=== PATIENT | male | born 1950 | race Caucasian/White ===

== ENCOUNTER → 2017-07-31 11:38 | Outpatient (CLI) | payer MEDICARE, OTHER, SELFPAY ==
[2017-07-31 12:38] LABS: Absolute Lymphocyte Count 0.92 X10^3/ul (0.83-4.51); Absolute Neutrophil Count 3.1 X10^3/uL (2.0-7.7); Basophil# 0.06 X10^3/uL; Basophil% 1.2 % (0-1); Eosinophil# 0.27 X10^3/uL; Eosinophils% 5.5 % (0-5); Hematocrit 39.6 % (40-54); Hemoglobin 12.5 g/dl (13.0-16.5); Lymphocyte # 0.92 X10^3/ul (4.0); Lymphocyte % 18.7 % (19-41); Mean Corp Hgb Conc 31.6 g/gl (32-36); Mean Corpuscular Hgb 26.8 pg (27.0-32.0); Mean Corpuscular Volume 84.8 fL (80-94); Mean Platelet Vol. 9.7 fl (6.2-12.0); Monocyte% 12.2 % (0-10); Neutrophil # 3.06 X10^3/uL (2.7-7.7); Neutrophil % 62.4 % (47-70); Platelet Count 298 K/mm3 (150-450); RBC Distribution Width CV 15.3 % (11.6-14.6); RBC Distribution Width SD 47.4 fl (35.1-43.9); Red Blood Count 4.67 M/mm3 (4.6-6.2); White Blood Count 4.9 K/mm3 (4.4-11.0)
[2017-07-31 12:42] LABS: POSITIVE COUNT NO; POSITIVE DIFFERENTIAL NO; POSITIVE MORPHOLOGY NO
[2017-07-31 12:56] LABS: AST(SGOT) 34 U/L (15-37); Alanine Aminotransfer ALT/SGPT 39 U/L (16-61); Alkaline Phosphatase 84 U/L (45-117); Anion Gap 7 (5-15); BUN 12 mg/dL (7-18); BUN/Creat Ratio 15.8 RATIO (10-20); Calcium,Total 9.4 mg/dL (8.5-10.1); Chloride 101 mmol/L (98-107); Creatinine, Serum 0.76 mg/dL (0.70-1.30); EST Glomerular Filtration Rate 108 mL/min (>60); Est Glom Filt Rate - Afr Amer 131 mL/min (>60); Globulin 4.1 g/dL (2.2-4.2); Glucose 99 mg/dL (74-106); PSA,Total - Annual Screen 0.71 ng/mL (0.00-4.00); Potassium 4.4 mmol/L (3.5-5.1); Protein, Total 8.1 g/dL (6.4-8.2); Sodium Level 137 mmol/L (136-145); Thyroid Stim Hormone (TSH) 0.55 uIU/mL (0.358-3.74)
[2017-08-01 10:10] LABS: Hep C Antibodies <0.1 s/co ratio (0.0-0.9)
== END ==
PROVIDERS: Family Provider Family Medicine Geriatric Medicine; PCP Family Medicine Geriatric Medicine; Visit Provider Family Medicine Geriatric Medicine
DX: I10 Essential (primary) hypertension (principal); F52.8 Other sexual dysfunction not due to a substance or known physiological condition; Z12.5 Encounter for screening for malignant neoplasm of prostate; Z13.89 Encounter for screening for other disorder
CPT/HCPCS: 36415; 80053; 84153; 84403; 84443; 85025; 86803; G0103

== ENCOUNTER → 2018-01-29 13:20 | Outpatient (CLI) | payer MEDICARE, OTHER, SELFPAY ==
[2018-01-29 17:29] LABS: Absolute Lymphocyte Count 0.74 X10^3/ul (0.83-4.51); Absolute Neutrophil Count 2.9 X10^3/uL (2.0-7.7); Basophil# 0.05 X10^3/uL; Basophil% 1.1 % (0-1); Eosinophil# 0.28 X10^3/uL; Hemoglobin 12.7 g/dl (13.0-16.5); Lymphocyte # 0.74 X10^3/ul (4.0); Mean Corp Hgb Conc 32.6 g/gl (32-36); Mean Platelet Vol. 10.4 fl (6.2-12.0); Monocyte# 0.68 X10^3/uL; Monocyte% 14.7 % (0-10); Neutrophil # 2.87 X10^3/uL (2.7-7.7); Platelet Count 255 K/mm3 (150-450); RBC Distribution Width CV 16.8 % (11.6-14.6); RBC Distribution Width SD 54.2 fl (35.1-43.9); Red Blood Count 4.38 M/mm3 (4.6-6.2); White Blood Count 4.6 K/mm3 (4.4-11.0)
[2018-01-29 17:35] LABS: ALB/GLOB Ratio 0.9 RATIO (0.9-2.4); AST(SGOT) 38 U/L (15-37); Alanine Aminotransfer ALT/SGPT 44 U/L (16-61); Albumin, Serum 3.7 g/dL (3.2-5.0); Alkaline Phosphatase 68 U/L (45-117); Anion Gap 11 (5-15); BUN 12 mg/dL (7-18); BUN/Creat Ratio 13.9 RATIO (10-20); Calcium,Total 8.8 mg/dL (8.5-10.1); Chloride 102 mmol/L (98-107); Creatinine, Serum 0.86 mg/dL (0.70-1.30); EST Glomerular Filtration Rate 93 mL/min (>60); Est Glom Filt Rate - Afr Amer 113 mL/min (>60); Globulin 3.9 g/dL (2.2-4.2); Glucose 89 mg/dL (74-106); Potassium 3.9 mmol/L (3.5-5.1); Protein, Total 7.6 g/dL (6.4-8.2); Sodium Level 140 mmol/L (136-145); Thyroid Stim Hormone (TSH) 0.56 uIU/mL (0.358-3.74)
[2018-01-29 17:43] LABS: Vitamin D,25 Hydroxy 27.5 ng/mL (29.95-100.01)
[2018-01-29 17:46] LABS: POSITIVE COUNT NO; POSITIVE DIFFERENTIAL NO; POSITIVE MORPHOLOGY NO
== END ==
PROVIDERS: Family Provider Family Medicine Geriatric Medicine; PCP Family Medicine Geriatric Medicine; Visit Provider Family Medicine Geriatric Medicine
DX: I10 Essential (primary) hypertension (principal); E55.9 Vitamin D deficiency, unspecified; F52.8 Other sexual dysfunction not due to a substance or known physiological condition
CPT/HCPCS: 36415; 80053; 82306; 84403; 84443; 85025

== ENCOUNTER → 2018-04-03 12:57 | Outpatient (CLI) | payer MEDICARE, OTHER, SELFPAY ==
--- NOTE | 2018-04-03 13:01 | ECHOD_ITS ---
Reason For Study: PHTN Procedure This was a 2D Doppler, Color Flow transthoracic echocardiogram. The exam was of adequate technical quality. Exam performed in department. Left Ventricle Normal LV size. Left ventricular systolic function is normal. The estimated ejection fraction is 70 %. No regional wall motion abnormalities noted. Right Ventricle Normal RV size. Normal systolic function. Atria The left atrium is mildly enlarged. The right atrium is mildly enlarged. No doppler evidence for ASD. Mitral Valve There is no mitral annular calcification. Normal mitral valve. Trivial mitral valve insufficiency. Tricuspid Valve Normal tricuspid valve. Trivial tricuspid valve insufficiency. Right ventricular systolic pressure estimated to be 39 mmHg. Aortic Valve Trisinus/trileaflet aortic valve. Mild focal aortic valve thickening. Pulmonic Valve The pulmonic valve is not well visualized. Great Vessels The aortic root is not well visualized. Pericardium/Pleural No pericardial effusion. MMode/2D Measurements & Calculations LVIDd: 4.5 cm IVSd: 0.99 cm LA dimension: 4.1 cm LVIDs: 2.6 cm LVPWd: 1.1 cm FS: 43.3 % LAV(MOD-bp): 65.2 ml LA A4 area: 20.9 cm2 RA A4 area: 23.9 cm2 LAV(MOD-bp) Indexed: 29.7 ml/m2 LAV(MOD-sp2): 67.4 ml LAV(MOD-sp4): 62.3 ml Time Measurements MV dec time: 0.33 sec Doppler Measurements & Calculations MV E max carlos: 105.2 cm/sec Lat Peak E' Carlos: 11.1 cm/sec Med Peak E' Carlos: 9.8 cm/sec MV A max carlos: 78.9 cm/sec E/E' lat: 9.5 E/E' med: 10.7 MV E/A: 1.3 MV V2 max: 114.6 cm/sec MV P1/2t max carlos: 108.8 cm/sec Ao V2 max: 190.7 cm/sec MV max P.3 mmHg MV P1/2t: 119.1 msec Ao max P.5 mmHg MV V2 mean: 63.0 cm/sec MV dec slope: 267.6 cm/sec2 Ao V2 mean: 118.6 cm/sec MV mean P.9 mmHg MVA(P1/2t): 1.8 cm2 Ao mean P.7 mmHg MV V2 VTI: 41.8 cm Ao V2 VTI: 36.7 cm LV V1 max: 128.3 cm/sec PA V2 max: 150.2 cm/sec TR max carlos: 298.1 cm/sec LV V1 max P.6 mmHg TR max P.5 mmHg LV V1 mean P.2 mmHg LV V1 mean: 80.8 cm/sec LV V1 VTI: 26.9 cm Interpretation Summary Left ventricular systolic function is normal. The estimated ejection fraction is 70 %. The left atrium is mildly enlarged. The right atrium is mildly enlarged. Trivial mitral valve insufficiency. Trivial tricuspid valve insufficiency. Mild focal aortic valve thickening. Right ventricular systolic pressure estimated to be 39 mmHg. Transmitral diastolic flow velocities suggest diastolic dysfunction (pseudonormal pattern). Ordering Physician: Jigar Cast Referring Physician: Jigar Cast Performed By: Stuart Krause RCS
--- OUTSIDE RECORDS SUMMARY | 2018-06-05 17:13 | XMS RPT_ITS ---
:1950 Author Organization [facility] Care Team Providers Name Role Phone Jigar Cast Attending Unavailable Jigar Cast Referring Unavailable Raman, Mohinder Chi Primary Care Unavailable Raman, Mohinder Chi Attending Unavailable Raman, Mohinder Chi Primary Care Unavailable Raman, Mohinder Chi Attending Unavailable Raman, Mohinder Chi Primary Care Unavailable PROBLEMS PROBLEMS No Problem Records FoundPROCEDURES PROCEDURES No Procedure Records FoundRESULTS RESULTS ECHOCARDIOGRAM COMPLETE Observed: 04/03/2018 Status: F Source: [place] 8:08 PM [facility] REPOSITORY [facility] Cardiovascular Services [address] [place] [address] Echo Complete 04/03/18 1302 MR#: [id number] Acct: [id number] Name: AVELINA TREJO Rep #: [id number] : 1950 67 From: Cutr Felix MD Attending Dr: Jigar Cast MD Status: REG CLI Ordering Dr: Jigar Cast MD Date: 04/03/18 Location: [facility] Sex: M C Admitted: Reason For Study: PHTN Procedure This was a 2D Doppler, Color Flow transthoracic echocardiogram. The exam was of adequate technical quality. Exam performed in department. Left Ventricle Normal LV size. Left ventricular systolic function is normal. The estimated ejection fraction is 70 %. No regional wall motion abnormalities noted. Right Ventricle Normal RV size. Normal systolic function. Atria The left atrium is mildly enlarged. The right atrium is mildly enlarged. No doppler evidence for ASD. Mitral Valve There is no mitral annular calcification. Normal mitral valve. Trivial mitral valve insufficiency. Tricuspid Valve Normal tricuspid valve. Trivial tricuspid valve insufficiency. Right ventricular systolic pressure estimated to be 39 mmHg. Aortic Valve Trisinus/trileaflet aortic valve. Mild focal aortic valve thickening. Pulmonic Valve The pulmonic valve is not well visualized. Great Vessels The aortic root is not well visualized. Pericardium/Pleural No pericardial effusion. MMode/2D Measurements AND Calculations LVIDd: 4.5 cm IVSd: 0.99 cm LA dimension: 4.1 cm LVIDs: 2.6 cm LVPWd: 1.1 cm FS: 43.3 % LAV(MOD-bp): 65.2 ml LA A4 area: 20.9 cm2 RA A4 area: 23.9 cm2 LAV(MOD-bp) Indexed: 29.7 ml/m2 LAV(MOD-sp2): 67.4 ml LAV(MOD-sp4): 62.3 ml Time Measurements MV dec time: 0.33 sec Doppler Measurements AND Calculations MV E max carlos: 105.2 cm/sec Lat Peak E' Carlos: 11.1 cm/sec Med Peak E' Carlos: 9.8 cm/sec MV A max carlos: 78.9 cm/sec E/E' lat: 9.5 E/E' med: 10.7 MV E/A: 1.3 MV V2 max: 114.6 cm/sec MV P1/2t max carlos: 108.8 cm/sec Ao V2 max: 190.7 cm/sec MV max P.3 mmHg MV P1/2t: 119.1 msec Ao max P.5 mmHg MV V2 mean: 63.0 cm/sec MV dec slope: 267.6 cm/sec2 Ao V2 mean: 118.6 cm/sec MV mean P.9 mmHg MVA(P1/2t): 1.8 cm2 Ao mean P.7 mmHg MV V2 VTI: 41.8 cm Ao V2 VTI: 36.7 cm LV V1 max: 128.3 cm/sec PA V2 max: 150.2 cm/sec TR max carlos: 298.1 cm/sec LV V1 max P.6 mmHg TR max P.5 mmHg LV V1 mean P.2 mmHg LV V1 mean: 80.8 cm/sec LV V1 VTI: 26.9 cm Interpretation Summary Left ventricular systolic function is normal. The estimated ejection fraction is 70 %. The left atrium is mildly enlarged. The right atrium is mildly enlarged. Trivial mitral valve insufficiency. Trivial tricuspid valve insufficiency. Mild focal aortic valve thickening. Right ventricular systolic pressure estimated to be 39 mmHg. Transmitral diastolic flow velocities suggest diastolic dysfunction (pseudonormal pattern). Ordering Physician: Jigar Cast Referring Physician: Jigar Cast Performed By: Stuart Krause RCS 04/03/182007 Date Curt Felix MD CC: Jigar Cast MD; Mohinder Camargo MD Date Dictated: 04/03/182 Date Transcribed: 04/03/182007 Cartography Teacher: Signed COMPREHENSIVE METABOLIC Collected: 01/29/2018 Status: F Source: [place] 1:21 PM [facility] REPOSITORY TYPE CODE TESTS RESULT OUT OF RANGE REFERENCE UNITS LAB L501.0100 74-106 mg/dL Normal GLU 89 Result Comment: Please note revised GLUCOSE reference range effective 2017. LAB L501.1000 7-18 mg/dL Normal BUN 12 LAB L501.1100 0.70-1.30 mg/dL Normal CREAT,SERUM 0.86 Result Comment: The validity of the calculated GFR AND GFRAA in patients over 70 years has not been determined. Clinical correlation is essential. LAB L501.1110 >60 mL/min Normal EST GFR 93 Result Comment: Non- GFR Calc LAB L501.1115 >60 mL/min Normal EST GFR - AA 113 Result Comment: GFR Calc LAB L501.1300 10-20 RATIO Normal BUN/CRE 13.9 LAB L501.1500 6.4-8.2 g/dL T Normal PROT 7.6 LAB L501.1800 3.2-5.0 g/dL Normal ALB 3.7 LAB L501.1950 2.2-4.2 g/dL Normal GLOB 3.9 LAB L501.2000 0.9-2.4 RATIO Normal A/G 0.9 LAB L501.2200 8.5-10.1 mg/dL CA Normal 8.8 LAB L501.4100 15-37 U/L High AST 38 LAB L501.4305 45-117 U/L Normal ALK P 68 LAB L501.4405 16-61 U/L Normal ALT 44 LAB L501.4600 0.20-1.00 mg/dL T Normal BILI 0.40 LAB L501.5300 136-145 mmol/L NA Normal 140 LAB L501.5600 3.5-5.1 mmol/L K Normal 3.9 LAB L501.5900 98-107 mmol/L CL Normal 102 LAB L501.6100 21.0-32.0 mmol/L Normal CO2 27.0 LAB L501.6200 5-15 Normal GAP 11 Performed By: #### L500.4050, L501.9520 #### [facility] [address] [place], [address] THYROID STIM HORMONE Collected: 01/29/2018 Status: F Source: [place] (TSH) 1:21 PM [facility] REPOSITORY TYPE CODE TESTS RESULT OUT OF RANGE REFERENCE UNITS LAB L501.9520 0.358-3.74 uIU/mL Normal TSH 0.56 Performed By: #### L500.4050, L501.9520 #### [facility] [address] [place], [address] VITAMIN D,25 HYDROXY Collected: 01/29/2018 Status: F Source: [place] 1:21 PM [facility] REPOSITORY TYPE CODE TESTS RESULT OUT OF REFERENCE UNITS RANGE LAB L506.1000 29.95-100.01 ng/mL Low Vitamin D 27.5 25-OH Result Comment: Vitamin D 25(OH) Status Range Deficiency <20 ng/mL (50nmol/L) Insuffciency 20 - 30 ng/mL (50 - 75 nmol/L) Sufficiency 30 - 100 ng/mL (75 - 250 nmol/L) Toxicity >100 ng/mL (>250 nmol/L) Performed By: #### L506.1000, L509.3000 #### [facility] [address] [place], [place], [address] TESTOSTERONE, SERUM TOTAL Collected: 01/29/2018 Status: F Source: [place] 1:21 PM [facility] REPOSITORY TYPE CODE TESTS RESULT OUT OF REFERENCE UNITS RANGE LAB L509.3000 ng/dL Testosterone Normal 319.96 Result Comment: NORMAL REFERENCE RANGES MALE AGE <50 123.06 - 813.86 ng/dL MALE AGE >50 89.98 - 780.10 ng/dL FEMALE PREMENOPAUSE AGE 21 - 60 9.01 - 47.94 ng/dL FEMALE POSTMENOPAUSE AGE 45 - 89 <7.00 - 45.62 ng/dL REFERENCE RANGE AND METHODOLOGY CHANGED 03/01/2017 Performed By: #### L506.1000, L509.3000 #### [facility] [address] [place], [place], [address] CBC W/DIFF, AUTOMATED Collected: 01/29/2018 Status: F Source: [place] 1:21 PM [facility] REPOSITORY TYPE CODE TESTS RESULT OUT OF RANGE REFERENCE UNITS LAB L100.1000 4.4-11.0 K/mm3 Normal WBC 4.6 LAB L100.1200 4.6-6.2 M/mm3 Low RBC 4.38 LAB L100.1300 13.0-16.5 g/dl Low HGB 12.7 LAB L100.1400 40-54 % Low HCT 39.0 LAB L100.1500 80-94 fL Normal MCV 89.0 LAB L100.1600 27.0-32.0 pg Normal MCH 29.0 LAB L100.1700 32-36 g/gl Normal MCHC 32.6 LAB L100.1810 11.6-14.6 % High RDW CV 16.8 LAB L100.1820 35.1-43.9 fl High RDW SD 54.2 LAB L100.1900 150-450 K/mm3 Normal PLT 255 LAB L100.2000 6.2-12.0 fl Normal MPV 10.4 LAB L100.2100 47-70 % Normal NEUT% 62.0 LAB L100.2200 19-41 % Low LY% 16.0 LAB L100.2300 0-10 % High MONO% 14.7 LAB L100.2400 0-5 % High EO% 6.0 LAB L100.2500 0-1 % High BASO% 1.1 LAB L100.2550 0.0-0.9 % Normal IM GRAN % 0.200 Result Comment: IG% - Immature Granulocytes (promyelocytes, myelocytes and metamyelocytes) > 1% indicates that a LEFT SHIFT is Present. LAB L100.2620 2.0-7.7 X10 3/uL Normal Absolute Neut 2.9 LAB L100.2720 0.83-4.51 X10 3/ul Low Absolute Lymph 0.74 Performed By: #### L100.0100 #### [facility] [address] [place], [address] CBC W/DIFF, AUTOMATED Collected: 07/31/2017 Status: F Source: [place] 11:38 AM [facility] REPOSITORY TYPE CODE TESTS RESULT OUT OF RANGE REFERENCE UNITS LAB L100.1000 4.4-11.0 K/mm3 Normal WBC 4.9 LAB L100.1200 4.6-6.2 M/mm3 Normal RBC 4.67 LAB L100.1300 13.0-16.5 g/dl Low HGB 12.5 LAB L100.1400 40-54 % Low HCT 39.6 LAB L100.1500 80-94 fL Normal MCV 84.8 LAB L100.1600 27.0-32.0 pg Low MCH 26.8 LAB L100.1700 32-36 g/gl Low MCHC 31.6 LAB L100.1810 11.6-14.6 % High RDW CV 15.3 LAB L100.1820 35.1-43.9 fl High RDW SD 47.4 LAB L100.1900 150-450 K/mm3 Normal PLT 298 LAB L100.2000 6.2-12.0 fl Normal MPV 9.7 LAB L100.2100 47-70 % Normal NEUT% 62.4 LAB L100.2200 19-41 % Low LY% 18.7 LAB L100.2300 0-10 % High MONO% 12.2 LAB L100.2400 0-5 % High EO% 5.5 LAB L100.2500 0-1 % High BASO% 1.2 LAB L100.2550 0.0-0.9 % Normal IM GRAN % 0.000 Result Comment: IG% - Immature Granulocytes (promyelocytes, myelocytes and metamyelocytes) > 1% indicates that a LEFT SHIFT is Present. LAB L100.2620 2.0-7.7 X10 3/uL Normal Absolute Neut 3.1 LAB L100.2720 0.83-4.51 X10 3/ul Normal Absolute Lymph 0.92 Performed By: #### L100.0100 #### [facility] [place], [address] COMPREHENSIVE METABOLIC Collected: 07/31/2017 Status: F Source: [place] 11:38 AM [facility] REPOSITORY TYPE CODE TESTS RESULT OUT OF RANGE REFERENCE UNITS LAB L501.0100 74-106 mg/dL Normal GLU 99 Result Comment: Please note revised GLUCOSE reference range effective 2017. LAB L501.1000 7-18 mg/dL Normal BUN 12 LAB L501.1100 0.70-1.30 mg/dL Normal CREAT,SERUM 0.76 Result Comment: The validity of the calculated GFR AND GFRAA in patients over 70 years has not been determined. Clinical correlation is essential. LAB L501.1110 >60 mL/min Normal EST GFR 108 Result Comment: Non- GFR Calc LAB L501.1115 >60 mL/min Normal EST GFR - AA 131 Result Comment: GFR Calc LAB L501.1300 10-20 RATIO Normal BUN/CRE 15.8 LAB L501.1500 6.4-8.2 g/dL T Normal PROT 8.1 LAB L501.1800 3.2-5.0 g/dL Normal ALB 4.0 LAB L501.1950 2.2-4.2 g/dL Normal GLOB 4.1 LAB L501.2000 0.9-2.4 RATIO Normal A/G 1.0 LAB L501.2200 8.5-10.1 mg/dL CA Normal 9.4 LAB L501.4100 15-37 U/L Normal AST 34 LAB L501.4305 45-117 U/L Normal ALK P 84 LAB L501.4405 16-61 U/L Normal ALT 39 LAB L501.4600 0.20-1.00 mg/dL T Normal BILI 0.50 LAB L501.5300 136-145 mmol/L NA Normal 137 LAB L501.5600 3.5-5.1 mmol/L K Normal 4.4 LAB L501.5900 98-107 mmol/L CL Normal 101 LAB L501.6100 21.0-32.0 mmol/L Normal CO2 29.0 LAB L501.6200 5-15 Normal GAP 7 Performed By: #### L500.4050, L501.9520, L501.9910 #### [facility] [address] [place], [address] THYROID STIM HORMONE Collected: 07/31/2017 Status: F Source: [place] (TSH) 11:38 AM [facility] REPOSITORY TYPE CODE TESTS RESULT OUT OF RANGE REFERENCE UNITS LAB L501.9520 0.358-3.74 uIU/mL Normal TSH 0.55 Performed By: #### L500.4050, L501.9520, L501.9910 #### [facility] [address] [place], [address] PSA,TOTAL - ANNUAL Collected: 07/31/2017 Status: F Source: [place] 11:38 AM [facility] REPOSITORY TYPE CODE TESTS RESULT OUT OF RANGE REFERENCE UNITS LAB L501.9910 0.00-4.00 ng/mL Normal PSA,TOT 0.71 SCREEN Result Comment: This test was performed using the TPSA assay method for the [employer] chemistry system. Values obtained with different assay methods cannot be used interchangably. When changing PSA assays in the course of monitoring a patient, additional sequential testing should be carried out to confirm baseline values. Performed By: #### L500.4050, L501.9520, L501.9910 #### [facility] [address] [place], [place], [address] TESTOSTERONE, SERUM TOTAL Collected: 07/31/2017 Status: F Source: [place] 11:38 AM [facility] REPOSITORY TYPE CODE TESTS RESULT OUT OF REFERENCE UNITS RANGE LAB L509.3000 ng/dL Testosterone Normal 387.68 Result Comment: NORMAL REFERENCE RANGES MALE AGE <50 123.06 - 813.86 ng/dL MALE AGE >50 89.98 - 780.10 ng/dL FEMALE PREMENOPAUSE AGE 21 - 60 9.01 - 47.94 ng/dL FEMALE POSTMENOPAUSE AGE 45 - 89 <7.00 - 45.62 ng/dL REFERENCE RANGE AND METHODOLOGY CHANGED 03/01/2017 Performed By: #### L509.3000 #### [facility] [address] [place], [address] HEPATITIS C ANTIBODIES Collected: 07/31/2017 Status: F Source: [place] 11:38 AM [facility] REPOSITORY TYPE CODE TESTS RESULT OUT OF RANGE REFERENCE UNITS LAB L3100.0650 0.0-0.9 s/co ratio Normal HEP C AB <0.1 Result Comment: Negative: < 0.8 Indeterminate: 0.8 - 0.9 Positive: > 0.9 The CDC recommends that a positive HCV antibody result be followed up with a HCV Nucleic Acid Amplification test (642778). Performed at: [facility] [id number] Line Cleaner: Gopi Renner PhD, Phone: [phone] Performed By: #### L3100.0625 #### [facility] (refer to report for specific site) refer to report for address and phone number ALLERGIES ALLERGIES DATE TYPE / CODE NAME / CODE REACTION SEVERITY SOURCE 09/16/2014 Drug lisinopril/F0 Angioedema Unknown [place] Allergy/[id number](S [id number](RXNO [facility] NOMED CT) RM) Hospital Repository 09/14/2014 Drug Penicillins/F Unknown Unknown [place] Allergy/080547326(S [id number](RXN [facility] NOMED CT) ORM) Hospital Repository 09/14/2014 Miscellaneous BLUE CHEESE Swelling Unknown [place] Allergy/[id number](S DRESSING [facility]) Hospital Repository ENCOUNTERS ENCOUNTERS ADMIT/DISCHARGE ACCOUNT ADMITTING ENCOUNTER LOCATION SOURCE NUMBER CLASS 04/03/2018 [id number] Ambulatory [place] 2 [facility] ing:[facility] Repository 01/29/2018 [id number] Ambulatory [place] 2 [facility] ing:POLAB3 Repository 07/31/2017 [id number] Ambulatory [place] 3 [facility] ing:POLAB3 Repository PAYERS PAYERS ENCOUNTER GUARANTOR PAYER SUBSCRIBER SOURCE 04/03/2018 AVELINA Dickerson Primary AVELINA Berkowitz [id number] Insurance:MEDICARE EMLERDOB: [facility] A [facility] [id number] Repository [id number]: [phone] [id number] [phone] () Date:2017-09-27 04/03/2018 Secondary AVELINA Berkowitz Insurance:[facility] EMLERDOB: [facility] [id number] [facility] Number: Repository [id number] Date:[id number] [place] [place] [address]UR: 04/03/2018 Tertiary NOT GIVENUNK [place] Insurance:SELF PAY [facility] Number: Effective Repository Date:2017-09-27 01/29/2018 Avelina Dickerson Primary Avelina Gainesoster [id number] Insurance:MEDICARE EmlerDOB: [facility] PART A [facility] [id number] Number: Repository [id number]: [phone] [id number] [phone] (HP) Date:2018-01-29 01/29/2018 Secondary Avelina Berkowitz Insurance:WPS EmlerDOB: [facility] [id number] Hospital Number: Repository [id number] Date:[id number], [place] [address]UR: 01/29/2018 Tertiary NOT GIVENUNK [place] Insurance:SELF PAY [facility] Number: Effective Repository Date:2018-01-29 07/31/2017 Avelina Dickerson Primary Avelina Gainesoster [id number] Insurance:MEDICARE EmlerDOB: [facility] PART A [facility] [id number] Number: Repository [id number]: [phone] [id number] [phone] (HP) Date:2017-07-31 07/31/2017 Secondary Avelina Berkowitz Insurance:WPS EmlerDOB: [facility] [id number] Hospital Number: Repository [id number] Date:[id number], [place] [address]FN: 07/31/2017 Tertiary NOT GIVENUNK [place] Insurance:SELF PAY [facility] Hospital Number: Effective Repository Date:2017-07-31
== END ==
PROVIDERS: Family Provider Family Medicine Geriatric Medicine; PCP Family Medicine Geriatric Medicine; Referring Provider Internal Medicine Pulmonary Disease; Visit Provider Internal Medicine Pulmonary Disease
DX: I27.0 Primary pulmonary hypertension (principal)
CPT/HCPCS: 93306

== ENCOUNTER → 2018-08-03 | Outpatient (CLI) | payer MEDICARE, OTHER, SELFPAY ==
[2018-08-03 12:43] LABS: Absolute Lymphocyte Count 0.86 X10^3/ul (0.83-4.51); Basophil# 0.08 X10^3/uL; Basophil% 1.4 % (0-1); Eosinophil# 0.26 X10^3/uL; Eosinophils% 4.4 % (0-5); Hematocrit 39.6 % (40-54); Hemoglobin 12.8 g/dl (13.0-16.5); Lymphocyte # 0.86 X10^3/ul (4.0); Lymphocyte % 14.7 % (19-41); Mean Corp Hgb Conc 32.3 g/gl (32-36); Mean Corpuscular Hgb 26.8 pg (27.0-32.0); Mean Platelet Vol. 9.5 fl (6.2-12.0); Monocyte# 0.65 X10^3/uL; Monocyte% 11.1 % (0-10); Neutrophil # 3.99 X10^3/uL (2.7-7.7); Neutrophil % 68.2 % (47-70); Platelet Count 287 K/mm3 (150-450); RBC Distribution Width SD 45.7 fl (35.1-43.9); Red Blood Count 4.77 M/mm3 (4.6-6.2); White Blood Count 5.9 K/mm3 (4.4-11.0)
[2018-08-03 12:48] LABS: POSITIVE COUNT NO; POSITIVE DIFFERENTIAL NO; POSITIVE MORPHOLOGY NO
[2018-08-03 13:33] LABS: AST(SGOT) 34 U/L (15-37); Alanine Aminotransfer ALT/SGPT 39 U/L (16-61); Alkaline Phosphatase 73 U/L (45-117); Anion Gap 7 (5-15); BUN 15 mg/dL (7-18); BUN/Creat Ratio 18.8 RATIO (10-20); Chloride 104 mmol/L (98-107); EST Glomerular Filtration Rate 102 mL/min (>60); Est Glom Filt Rate - Afr Amer 123 mL/min (>60); Glucose 92 mg/dL (74-106); Potassium 3.8 mmol/L (3.5-5.1); Sodium Level 137 mmol/L (136-145); Thyroid Stim Hormone (TSH) 0.64 uIU/mL (0.358-3.74)
== END | disposition home or self-care (01) ==
LOC: LAB 11:46
PROVIDERS: Family Provider Family Medicine Geriatric Medicine; PCP Family Medicine Geriatric Medicine; Referring Provider Family Medicine Geriatric Medicine; Visit Provider Family Medicine Geriatric Medicine
DX: I10 Essential (primary) hypertension (principal); F52.8 Other sexual dysfunction not due to a substance or known physiological condition; Z12.5 Encounter for screening for malignant neoplasm of prostate
CPT/HCPCS: 36415; 80053; 84153; 84403; 84443; 85025; G0103

== ENCOUNTER → 2019-02-01 10:29 | Outpatient (CLI) | payer MEDICARE, OTHER, SELFPAY ==
[2019-02-01 12:28] LABS: Absolute Lymphocyte Count 0.58 X10^3/uL (0.83-4.51); Absolute Neutrophil Count 3.1 X10^3/uL (2.0-7.7); Basophil# 0.06 X10^3/uL; Basophil% 1.3 % (0-1); Eosinophil# 0.16 X10^3/uL; Eosinophils% 3.6 % (0-5); Hematocrit 41.9 % (40-54); Hemoglobin 13.9 g/dL (13.0-16.5); Lymphocyte # 0.58 X10^3/ul (4.0); Lymphocyte % 12.9 % (19-41); Mean Corp Hgb Conc 33.2 g/dL (32-36); Mean Corpuscular Hgb 29.6 pg (27.0-32.0); Mean Corpuscular Volume 89.3 fL (80-94); Mean Platelet Vol. 9.8 fl (6.2-12.0); Monocyte# 0.61 X10^3/uL; Monocyte% 13.6 % (0-10); NRBC Flagged by Analyzer 0 % (0-5); Neutrophil # 3.07 X10^3/uL (2.7-7.7); Neutrophil % 68.2 % (47-70); POSITIVE DIFFERENTIAL YES; Platelet Count 271 K/mm3 (150-450); RBC Distribution Width CV 14.2 % (11.6-14.6); RBC Distribution Width SD 46.4 fl (35.1-43.9); Red Blood Count 4.69 M/mm3 (4.6-6.2); White Blood Count 4.5 K/mm3 (4.4-11.0)
[2019-02-01 12:33] LABS: Differential Indicated SCAN CRITERIA MET
[2019-02-01 12:51] LABS: Vitamin D,25 Hydroxy 36.2 ng/mL (29.95-100.01)
[2019-02-01 12:54] LABS: ALB/GLOB Ratio 0.9 RATIO (0.9-2.4); AST(SGOT) 32 U/L (15-37); Alanine Aminotransfer ALT/SGPT 36 U/L (16-61); Albumin, Serum 3.6 g/dL (3.2-5.0); Alkaline Phosphatase 69 U/L (45-117); Anion Gap 4 (5-15); BUN 11 mg/dL (7-18); BUN/Creat Ratio 14.3 RATIO (10-20); Calcium,Total 8.7 mg/dL (8.5-10.1); Chloride 102 mmol/L (98-107); Creatinine, Serum 0.77 mg/dL (0.70-1.30); EST Glomerular Filtration Rate 107 mL/min (>60); Est Glom Filt Rate - Afr Amer 129 mL/min (>60); Glucose 95 mg/dL (74-106); Potassium 3.6 mmol/L (3.5-5.1); Protein, Total 7.6 g/dL (6.4-8.2); Sodium Level 136 mmol/L (136-145)
[2019-02-01 13:23] LABS: Platelet Estimate ADEQUATE (ADEQ); Red Cell Morphology NORM C+C NORMAL (NORM C&C)
== END ==
PROVIDERS: Family Provider Family Medicine Geriatric Medicine; PCP Family Medicine Geriatric Medicine; Visit Provider Family Medicine Geriatric Medicine
DX: E55.9 Vitamin D deficiency, unspecified (principal); F52.8 Other sexual dysfunction not due to a substance or known physiological condition; I10 Essential (primary) hypertension; Z12.5 Encounter for screening for malignant neoplasm of prostate
CPT/HCPCS: 36415; 80053; 82306; 84403; 84443; 85025

== ENCOUNTER → 2019-04-08 13:59 | Outpatient (CLI) | payer MEDICARE, OTHER, SELFPAY ==
--- NOTE | 2019-04-08 14:04 | ECHOD_ITS ---
Reason For Study: PHTN Procedure This was a 2D Doppler, Color Flow transthoracic echocardiogram. Exam performed in department. Left Ventricle Normal LV size. Left ventricular systolic function is normal. The estimated ejection fraction is 65 %. No regional wall motion abnormalities noted. Right Ventricle Normal RV size. Normal systolic function. Atria Normal left atrium. Normal right atrium. Mitral Valve Normal mitral valve. Tricuspid Valve Normal tricuspid valve. Unable to estimate RV systolic pressure due to inadequate jet, pulmonary artery pressure probably normal. Aortic Valve Normal aortic valve. Trisinus/trileaflet aortic valve. Pulmonic Valve Normal pulmonic valve. Great Vessels Normal aortic root. The pulmonary artery is normal size. Normal inferior vena cava. Pericardium/Pleural No pericardial effusion. MMode/2D Measurements & Calculations LVIDd: 5.1 cm IVSd: 1.0 cm LVOT diam: 2.0 cm LVIDs: 3.0 cm LVPWd: 1.1 cm LVOT area: 3.0 cm2 RVDd: 4.2 cm FS: 41.1 % Ao root diam: 3.4 cm LAV(MOD-bp): 72.2 ml LA A4 area: 21.5 cm2 LAV(MOD-bp) Indexed: 33.4 ml/m2 LAV(MOD-sp2): 66.4 ml LAV(MOD-sp4): 69.1 ml LA dimension(2D): 4.1 cm RA A4 area: 15.9 cm2 Time Measurements MV dec time: 0.22 sec Doppler Measurements & Calculations MV E max carlos: 92.3 cm/sec Lat Peak E' Carlos: 11.2 cm/sec Med Peak E' Carlos: 9.1 cm/sec MV A max carlos: 80.9 cm/sec E/E' lat: 8.2 E/E' med: 10.1 MV E/A: 1.1 Ao V2 max: 195.5 cm/sec LV V1 max: 144.7 cm/sec SV(LVOT): 85.5 ml Ao max P.3 mmHg LV V1 max P.4 mmHg Ao V2 mean: 130.0 cm/sec LV V1 mean P.3 mmHg Ao mean P.5 mmHg LV V1 mean: 98.4 cm/sec Ao V2 VTI: 34.1 cm LV V1 VTI: 28.4 cm TAMAR(I,D): 2.5 cm2 TAMAR(V,D): 2.2 cm2 PA V2 max: 157.8 cm/sec Interpretation Summary Normal LV size. Left ventricular systolic function is normal. The estimated ejection fraction is 65 %. Unable to estimate RV systolic pressure due to inadequate jet, pulmonary artery pressure probably normal. Ordering Physician: Jigar Cast Referring Physician: Raman, Mohinder Chi Performed By: Loni Rivera, SHERRY, RVT
== END ==
PROVIDERS: Family Provider Family Medicine Geriatric Medicine; PCP Family Medicine Geriatric Medicine; Referring Provider Internal Medicine Pulmonary Disease; Visit Provider Internal Medicine Pulmonary Disease
DX: I27.20 Pulmonary hypertension, unspecified (principal)
CPT/HCPCS: 93306

== ENCOUNTER → 2019-05-14 | Outpatient (CLI) | payer MEDICARE, OTHER, SELFPAY ==
--- NOTE | 2019-05-14 14:36 | STRESSREP ---
Stress Test Report Date: 05-14-2019 Procedure: Exercise tolerance test Indications: Shortness of breath/dyspnea Consent: Per the patient Procedure: The patient exercised on a Timmy protocol for 6 minutes completing Stage II achieving a peak heart rate of 130 bpm (86 % predicted maximal heart rate) with a peak blood pressure 198/84 mmHg and a peak MET capacity of approximately 7 mET's. The baseline ECG demonstrated normal sinus rhythm. The peak exercise ECG demonstrated no obvious ECG changes. There was an occasional PAC/PVC during exercise and recovery; there was an isolated ventricular couplet during exercise and an isolated ventricular triplet during recovery. The functional capacity was considered average. The patient had no complaint of chest discomfort during exercise or recovery. The examination was discontinued secondary to Sallie. Impression: 1. Technically adequate (percent predicted maximal heart rate greater than 85%) exercise tolerance test 2. Peak exercise ECG with no obvious ECG changes 3. There was an occasional PAC/PVC during exercise and recovery; there was an isolated ventricular couplet during exercise and an isolated ventricular triplet during recovery This note was generated with [employer] software. It may contain incorrect words, spelling, and punctuation that were not noted in checking the note before signing.
== END | disposition home or self-care (01) ==
LOC: CVS 10:55
PROVIDERS: PCP Family Medicine Geriatric Medicine; Referring Provider Internal Medicine Pulmonary Disease; Visit Provider Internal Medicine Pulmonary Disease
DX: R06.00 Dyspnea, unspecified (principal)
CPT/HCPCS: 93017

== ENCOUNTER → 2019-08-09 | Outpatient (CLI) | payer MEDICARE, OTHER, SELFPAY | END | disposition home or self-care (01) | LOC: POLAB3 09:41 → LAB.FUTURE 12:01 | PROVIDERS: PCP Family Medicine Geriatric Medicine; Visit Provider Family Medicine Geriatric Medicine | DX: E55.9 Vitamin D deficiency, unspecified (principal); F52.8 Other sexual dysfunction not due to a substance or known physiological condition; I10 Essential (primary) hypertension; Z12.5 Encounter for screening for malignant neoplasm of prostate ==

== ENCOUNTER → 2020-02-11 10:38 | Outpatient (CLI) | payer MEDICARE, OTHER, SELFPAY ==
[2020-02-11 12:31] LABS: Absolute Lymphocyte Count 0.52 X10^3/uL (0.83-4.51); Absolute Neutrophil Count 3.8 X10^3/uL (2.0-7.7); Basophil# 0.05 X10^3/uL; Eosinophil# 0.14 X10^3/uL; Eosinophils% 2.7 % (0-5); Hemoglobin 14.7 g/dL (13.0-16.5); Lymphocyte # 0.52 X10^3/ul (4.0); Lymphocyte % 10.2 % (19-41); Mean Corp Hgb Conc 33.4 g/dL (32-36); Mean Corpuscular Hgb 31.8 pg (27.0-32.0); Mean Corpuscular Volume 95.2 fL (80-94); Mean Platelet Vol. 9.6 fl (6.2-12.0); Monocyte# 0.58 X10^3/uL; Monocyte% 11.4 % (0-10); NRBC Flagged by Analyzer 0 % (0-5); Neutrophil # 3.79 X10^3/uL (2.7-7.7); Neutrophil % 74.3 % (47-70); POSITIVE DIFFERENTIAL YES; Platelet Count 243 K/mm3 (150-450); RBC Distribution Width CV 13.6 % (11.6-14.6); RBC Distribution Width SD 48.3 fl (35.1-43.9); Red Blood Count 4.62 M/mm3 (4.6-6.2); White Blood Count 5.1 K/mm3 (4.4-11.0)
[2020-02-11 12:32] LABS: Differential Indicated SCAN CRITERIA MET
[2020-02-11 12:47] LABS: Vitamin D,25 Hydroxy 27.2 ng/mL
[2020-02-11 12:56] LABS: AST(SGOT) 31 U/L (15-37); Alanine Aminotransfer ALT/SGPT 35 U/L (16-61); Albumin, Serum 3.9 g/dL (3.2-5.0); Alkaline Phosphatase 68 U/L (45-117); Anion Gap 6 (5-15); BUN 12 mg/dL (7-18); BUN/Creat Ratio 15.8 RATIO (10-20); Chloride 100 mmol/L (98-107); Creatinine, Serum 0.76 mg/dL (0.70-1.30); EST Glomerular Filtration Rate 108 mL/min (>60); Est Glom Filt Rate - Afr Amer 130 mL/min (>60); Globulin 3.9 g/dL (2.2-4.2); Glucose 99 mg/dL (74-106); Potassium 3.7 mmol/L (3.5-5.1); Protein, Total 7.8 g/dL (6.4-8.2); Sodium Level 135 mmol/L (136-145); Thyroid Stim Hormone (TSH) 0.58 uIU/mL (0.358-3.74)
== END ==
PROVIDERS: PCP Family Medicine Geriatric Medicine; Visit Provider Family Medicine Geriatric Medicine
DX: E55.9 Vitamin D deficiency, unspecified (principal); F52.8 Other sexual dysfunction not due to a substance or known physiological condition; I10 Essential (primary) hypertension
CPT/HCPCS: 36415; 80053; 82306; 84403; 84443; 85025

== ENCOUNTER → 2020-08-27 10:33 | Outpatient (CLI) | payer MEDICARE, OTHER, SELFPAY ==
[2020-08-27 11:58] LABS: Absolute Lymphocyte Count 0.38 X10^3/uL (0.83-4.51); Absolute Neutrophil Count 3.8 X10^3/uL (2.0-7.7); Basophil# 0.07 X10^3/uL; Basophil% 1.4 % (0-1); Hematocrit 43.3 % (40-54); Hemoglobin 14.5 g/dL (13.0-16.5); Lymphocyte # 0.38 X10^3/ul (0.83-4.51); Lymphocyte % 7.6 % (19-41); Mean Corp Hgb Conc 33.5 g/dL (32-36); Mean Corpuscular Hgb 32.8 pg (27.0-32.0); Mean Platelet Vol. 9.6 fl (6.2-12.0); Monocyte# 0.55 X10^3/uL; NRBC Flagged by Analyzer 0 % (0-5); Neutrophil # 3.77 X10^3/uL (2.7-7.7); Neutrophil % 75.6 % (47-70); POSITIVE DIFFERENTIAL YES; Platelet Count 253 K/mm3 (150-450); RBC Distribution Width CV 12.4 % (11.6-14.6); RBC Distribution Width SD 44.8 fl (35.1-43.9); Red Blood Count 4.42 M/mm3 (4.6-6.2)
[2020-08-27 12:00] LABS: Differential Indicated SCAN CRITERIA MET
[2020-08-27 12:18] LABS: ALB/GLOB Ratio 0.9 RATIO (0.9-2.4); AST(SGOT) 34 U/L (15-37); Alanine Aminotransfer ALT/SGPT 36 U/L (16-61); Albumin, Serum 3.7 g/dL (3.2-5.0); Alkaline Phosphatase 71 U/L (45-117); Anion Gap 5 (5-15); BUN 12 mg/dL (7-18); BUN/Creat Ratio 15.6 RATIO (10-20); Calcium,Total 9.2 mg/dL (8.5-10.1); Chloride 102 mmol/L (98-107); Creatinine, Serum 0.77 mg/dL (0.70-1.30); EST Glomerular Filtration Rate 106 mL/min (>60); Est Glom Filt Rate - Afr Amer 128 mL/min (>60); Globulin 3.9 g/dL (2.2-4.2); Glucose 99 mg/dL (74-106); Protein, Total 7.6 g/dL (6.4-8.2); Sodium Level 136 mmol/L (136-145); Thyroid Stim Hormone (TSH) 0.67 uIU/mL (0.358-3.74)
[2020-08-27 12:31] LABS: Vitamin D,25 Hydroxy 33.6 ng/mL
== END ==
PROVIDERS: PCP Family Medicine Geriatric Medicine; Visit Provider Family Medicine Geriatric Medicine
DX: E55.9 Vitamin D deficiency, unspecified (principal); F52.8 Other sexual dysfunction not due to a substance or known physiological condition; I10 Essential (primary) hypertension
CPT/HCPCS: 36415; 80053; 82306; 84403; 84443; 85025

== ENCOUNTER → 2021-02-18 09:46 | Outpatient (CLI) | payer MEDICARE, OTHER, SELFPAY ==
[2021-02-18 12:09] LABS: Absolute Lymphocyte Count 0.38 X10^3/uL (0.83-4.51); Absolute Neutrophil Count 3.8 X10^3/uL (2.0-7.7); Basophil# 0.05 X10^3/uL; Eosinophil# 0.22 X10^3/uL; Eosinophils% 4.3 % (0-5); Hematocrit 44.1 % (40-54); Hemoglobin 15.3 g/dL (13.0-16.5); Lymphocyte # 0.38 X10^3/ul (0.83-4.51); Lymphocyte % 7.4 % (19-41); Mean Corp Hgb Conc 34.7 g/dL (32-36); Mean Platelet Vol. 9.3 fl (6.2-12.0); Monocyte# 0.68 X10^3/uL; Monocyte% 13.3 % (0-10); NRBC Flagged by Analyzer 0 % (0-5); Neutrophil # 3.78 X10^3/uL (2.7-7.7); Neutrophil % 73.8 % (47-70); POSITIVE DIFFERENTIAL YES; Platelet Count 265 K/mm3 (150-450); RBC Distribution Width CV 12.7 % (11.6-14.6); RBC Distribution Width SD 44.1 fl (35.1-43.9); Red Blood Count 4.64 M/mm3 (4.6-6.2); White Blood Count 5.1 K/mm3 (4.4-11.0)
[2021-02-18 12:10] LABS: Differential Indicated SCAN CRITERIA MET
[2021-02-18 12:32] LABS: ALB/GLOB Ratio 0.9 RATIO (0.9-2.4); AST(SGOT) 28 U/L (15-37); Alanine Aminotransfer ALT/SGPT 31 U/L (16-61); Albumin, Serum 3.7 g/dL (3.2-5.0); Alkaline Phosphatase 73 U/L (45-117); Anion Gap 9 (5-15); BUN 11 mg/dL (7-18); BUN/Creat Ratio 14.2 RATIO (10-20); Calcium,Total 9.3 mg/dL (8.5-10.1); Chloride 101 mmol/L (98-107); Creatinine, Serum 0.78 mg/dL (0.70-1.30); EST Glomerular Filtration Rate 105 mL/min (>60); Est Glom Filt Rate - Afr Amer 127 mL/min (>60); Glucose 78 mg/dL (74-106); Potassium 3.5 mmol/L (3.5-5.1); Protein, Total 7.7 g/dL (6.4-8.2); Sodium Level 137 mmol/L (136-145)
== END ==
PROVIDERS: PCP Family Medicine Geriatric Medicine; Visit Provider Family Medicine Geriatric Medicine
DX: E55.9 Vitamin D deficiency, unspecified (principal); I10 Essential (primary) hypertension
CPT/HCPCS: 36415; 80053; 82306; 84443; 85025

== ENCOUNTER → 2021-08-30 | Outpatient (CLI) | payer MEDICARE, OTHER, SELFPAY ==
[2021-08-30 12:50] LABS: Absolute Lymphocyte Count 0.27 X10^3/uL (0.83-4.51); Absolute Neutrophil Count 4.1 X10^3/uL (2.0-7.7); Basophil# 0.04 X10^3/uL; Basophil% 0.8 % (0-1); Eosinophil# 0.12 X10^3/uL; Eosinophils% 2.3 % (0-5); Hematocrit 42.6 % (40-54); Hemoglobin 14.4 g/dL (13.0-16.5); Lymphocyte # 0.27 X10^3/ul (0.83-4.51); Lymphocyte % 5.2 % (19-41); Mean Corp Hgb Conc 33.8 g/dL (32-36); Mean Corpuscular Hgb 32.2 pg (27.0-32.0); Mean Corpuscular Volume 95.3 fL (80-94); Mean Platelet Vol. 9.7 fl (6.2-12.0); Monocyte# 0.66 X10^3/uL; Monocyte% 12.7 % (0-10); NRBC Flagged by Analyzer 0 % (0-5); Neutrophil % 78.6 % (47-70); POSITIVE DIFFERENTIAL YES; Platelet Count 255 K/mm3 (150-450); RBC Distribution Width CV 12.5 % (11.6-14.6); RBC Distribution Width SD 44.3 fl (35.1-43.9); Red Blood Count 4.47 M/mm3 (4.6-6.2); White Blood Count 5.2 K/mm3 (4.4-11.0)
[2021-08-30 12:51] LABS: Vitamin D,25 Hydroxy 32.8 ng/mL
[2021-08-30 12:56] LABS: Differential Indicated SCAN CRITERIA MET
[2021-08-30 13:21] LABS: Platelet Estimate ADEQUATE (ADEQ); Red Cell Morphology NORM C+C NORMAL (NORM C&C)
[2021-08-30 13:49] LABS: ALB/GLOB Ratio 0.9 RATIO (0.9-2.4); AST(SGOT) 34 U/L (15-37); Alanine Aminotransfer ALT/SGPT 34 U/L (16-61); Albumin, Serum 3.6 g/dL (3.2-5.0); Alkaline Phosphatase 65 U/L (45-117); Anion Gap 8 (5-15); BUN 11 mg/dL (7-18); BUN/Creat Ratio 14.9 RATIO (10-20); Calcium,Total 9.3 mg/dL (8.5-10.1); Chloride 102 mmol/L (98-107); Creatinine, Serum 0.74 mg/dL (0.70-1.30); EST Glomerular Filtration Rate 110 mL/min (>60); Est Glom Filt Rate - Afr Amer 133 mL/min (>60); Globulin 3.9 g/dL (2.2-4.2); Glucose 79 mg/dL (74-106); Potassium 3.7 mmol/L (3.5-5.1); Protein, Total 7.5 g/dL (6.4-8.2); Sodium Level 136 mmol/L (136-145); Thyroid Stim Hormone (TSH) 0.53 uIU/mL (0.358-3.74)
== END | disposition home or self-care (01) ==
PROVIDERS: PCP Family Medicine Geriatric Medicine; Visit Provider Family Medicine Geriatric Medicine
DX: I10 Essential (primary) hypertension (principal); E55.9 Vitamin D deficiency, unspecified
CPT/HCPCS: 36415; 80053; 82306; 84443; 85025

== ENCOUNTER → 2021-12-16 | Outpatient (CLI) | payer MEDICARE, OTHER, SELFPAY | END | disposition home or self-care (01) | LOC: PSN 10:11 | PROVIDERS: PCP Family Medicine Geriatric Medicine; Referring Provider Family Medicine Geriatric Medicine; Visit Provider Family Medicine Geriatric Medicine | DX: R68.83 Chills (without fever) (principal); Z20.822 Contact with and (suspected) exposure to COVID-19 | CPT/HCPCS: 87635; 87804; 87807; C9803; U0003; U0005 ==

== ENCOUNTER → 2022-02-28 | Outpatient (CLI) | payer MEDICARE, OTHER, SELFPAY ==
[2022-02-28 17:18] LABS: Absolute Lymphocyte Count 0.26 X10^3/uL (0.83-4.51); Absolute Neutrophil Count 5.2 X10^3/uL (2.0-7.7); Basophil# 0.04 X10^3/uL; Basophil% 0.6 % (0-1); Eosinophil# 0.09 X10^3/uL; Eosinophils% 1.5 % (0-5); Hematocrit 44.2 % (40-54); Hemoglobin 14.8 g/dL (13.0-16.5); Lymphocyte # 0.26 X10^3/ul (0.83-4.51); Lymphocyte % 4.2 % (19-41); Mean Corp Hgb Conc 33.5 g/dL (32-36); Mean Corpuscular Hgb 32.7 pg (27.0-32.0); Mean Corpuscular Volume 97.6 fL (80-94); Mean Platelet Vol. 9.8 fl (6.2-12.0); Monocyte# 0.63 X10^3/uL; Monocyte% 10.2 % (0-10); NRBC Flagged by Analyzer 0 % (0-5); Neutrophil # 5.15 X10^3/uL (2.7-7.7); POSITIVE DIFFERENTIAL YES; Platelet Count 249 K/mm3 (150-450); RBC Distribution Width CV 13.1 % (11.6-14.6); RBC Distribution Width SD 46.7 fl (35.1-43.9); Red Blood Count 4.53 M/mm3 (4.6-6.2); White Blood Count 6.2 K/mm3 (4.4-11.0)
[2022-02-28 17:28] LABS: Vitamin D,25 Hydroxy 21.8 ng/mL
[2022-02-28 17:40] LABS: Differential Indicated SCAN CRITERIA MET
[2022-02-28 17:41] LABS: ALB/GLOB Ratio 1.1 RATIO (0.9-2.4); AST(SGOT) 30 U/L (15-37); Alanine Aminotransfer ALT/SGPT 31 U/L (16-61); Albumin, Serum 3.9 g/dL (3.2-5.0); Alkaline Phosphatase 69 U/L (45-117); Anion Gap 11 (5-15); BUN 16 mg/dL (7-18); BUN/Creat Ratio 18.9 RATIO (10-20); Calcium,Total 9.2 mg/dL (8.5-10.1); Chloride 100 mmol/L (98-107); Creatinine, Serum 0.84 mg/dL (0.70-1.30); EST Glomerular Filtration Rate 94 mL/min (>60); Est Glom Filt Rate - Afr Amer 114 mL/min (>60); Globulin 3.7 g/dL (2.2-4.2); Glucose 118 mg/dL (74-106); Potassium 3.2 mmol/L (3.5-5.1); Protein, Total 7.6 g/dL (6.4-8.2); Sodium Level 136 mmol/L (136-145); Thyroid Stim Hormone (TSH) 0.64 uIU/mL (0.358-3.74)
[2022-02-28 18:17] LABS: Differential Comment SCANNED
== END | disposition home or self-care (01) ==
LOC: POLAB3 13:07
PROVIDERS: PCP Family Medicine Geriatric Medicine; Visit Provider Family Medicine Geriatric Medicine
DX: I10 Essential (primary) hypertension (principal); F52.8 Other sexual dysfunction not due to a substance or known physiological condition; E55.9 Vitamin D deficiency, unspecified
CPT/HCPCS: 36415; 80053; 82306; 84403; 84443; 85025

== ENCOUNTER → 2022-03-09 | Outpatient (CLI) | payer MEDICARE, OTHER, SELFPAY ==
[2022-03-09 17:48] LABS: Anion Gap 7 (5-15); BUN 15 mg/dL (7-18); BUN/Creat Ratio 19.5 RATIO (10-20); Calcium,Total 9.4 mg/dL (8.5-10.1); Chloride 104 mmol/L (98-107); Creatinine, Serum 0.77 mg/dL (0.70-1.30); EST Glomerular Filtration Rate 105 mL/min (>60); Est Glom Filt Rate - Afr Amer 128 mL/min (>60); Glucose 99 mg/dL (74-106); Potassium 3.9 mmol/L (3.5-5.1); Sodium Level 137 mmol/L (136-145)
== END | disposition home or self-care (01) ==
LOC: POLAB3 11:32
PROVIDERS: PCP Family Medicine Geriatric Medicine; Visit Provider Family Medicine Geriatric Medicine
DX: E87.6 Hypokalemia (principal)
CPT/HCPCS: 36415; 80048

== ENCOUNTER → 2022-09-07 | Outpatient (CLI) | payer MEDICARE, OTHER, SELFPAY ==
[2022-09-07 11:41] LABS: Absolute Neutrophil Count 4.8 X10^3/uL (2.0-7.7); Basophil# 0.04 X10^3/uL; Basophil% 0.7 % (0-1); Eosinophil# 0.17 X10^3/uL; Eosinophils% 2.8 % (0-5); Hemoglobin 15.4 g/dL (13.0-16.5); Lymphocyte % 3.4 % (19-41); Mean Corp Hgb Conc 34.2 g/dL (32-36); Mean Corpuscular Hgb 32.7 pg (27.0-32.0); Mean Corpuscular Volume 95.5 fL (80-94); Monocyte# 0.77 X10^3/uL; Monocyte% 12.9 % (0-10); NRBC Flagged by Analyzer 0 % (0-5); Neutrophil # 4.75 X10^3/uL (2.7-7.7); Neutrophil % 79.5 % (47-70); POSITIVE DIFFERENTIAL YES; Platelet Count 222 K/mm3 (150-450); RBC Distribution Width CV 12.3 % (11.6-14.6); Red Blood Count 4.71 M/mm3 (4.6-6.2)
[2022-09-07 11:43] LABS: Differential Indicated SCAN CRITERIA MET
[2022-09-07 12:12] LABS: Vitamin D,25 Hydroxy 35.9 ng/mL
[2022-09-07 12:23] LABS: ALB/GLOB Ratio 1.1 RATIO (0.9-2.4); AST(SGOT) 34 U/L (15-37); Alanine Aminotransfer ALT/SGPT 30 U/L (16-61); Alkaline Phosphatase 70 U/L (45-117); Anion Gap 5 (5-15); BUN 13 mg/dL (7-18); BUN/Creat Ratio 18.5 RATIO (10-20); Calcium,Total 9.5 mg/dL (8.5-10.1); Chloride 102 mmol/L (98-107); EST Glomerular Filtration Rate 116 mL/min (>60); Est Glom Filt Rate - Afr Amer 141 mL/min (>60); Globulin 3.7 g/dL (2.2-4.2); Glucose 99 mg/dL (74-106); Potassium 3.9 mmol/L (3.5-5.1); Protein, Total 7.7 g/dL (6.4-8.2); Sodium Level 135 mmol/L (136-145); Thyroid Stim Hormone (TSH) 0.69 uIU/mL (0.358-3.74)
== END | disposition home or self-care (01) ==
LOC: LAB 11:27
PROVIDERS: PCP Family Medicine Geriatric Medicine; Referring Provider Family Medicine Geriatric Medicine; Visit Provider Family Medicine Geriatric Medicine
DX: I10 Essential (primary) hypertension (principal); E55.9 Vitamin D deficiency, unspecified
CPT/HCPCS: 36415; 80053; 82306; 84443; 85025

== ENCOUNTER → 2023-03-16 | Outpatient (CLI) | payer MEDICARE, OTHER, SELFPAY ==
[2023-03-16 11:54] LABS: Absolute Lymphocyte Count 0.18 X10^3/uL (0.83-4.51); Absolute Neutrophil Count 3.7 X10^3/uL (2.0-7.7); Basophil# 0.05 X10^3/uL; Basophil% 1.1 % (0-1); Eosinophil# 0.14 X10^3/uL; Hematocrit 45.5 % (40-54); Hemoglobin 15.5 g/dL (13.0-16.5); Lymphocyte # 0.18 X10^3/ul (0.83-4.51); Lymphocyte % 3.8 % (19-41); Mean Corp Hgb Conc 34.1 g/dL (32-36); Mean Corpuscular Hgb 32.3 pg (27.0-32.0); Mean Corpuscular Volume 94.8 fL (80-94); Mean Platelet Vol. 9.2 fl (6.2-12.0); Monocyte# 0.65 X10^3/uL; Monocyte% 13.8 % (0-10); NRBC Flagged by Analyzer 0 % (0-5); Neutrophil # 3.69 X10^3/uL (2.7-7.7); Neutrophil % 78.1 % (47-70); POSITIVE DIFFERENTIAL YES; Platelet Count 247 K/mm3 (150-450); RBC Distribution Width CV 12.6 % (11.6-14.6); White Blood Count 4.7 K/mm3 (4.4-11.0)
[2023-03-16 12:05] LABS: Differential Indicated SCAN CRITERIA MET
[2023-03-16 12:22] LABS: Vitamin D,25 Hydroxy 26.6 ng/mL
[2023-03-16 12:23] LABS: AST(SGOT) 36 U/L (15-37); Alanine Aminotransfer ALT/SGPT 29 U/L (16-61); Alkaline Phosphatase 72 U/L (45-117); Anion Gap 6 (5-15); BUN 14 mg/dL (7-18); BUN/Creat Ratio 17.9 RATIO (10-20); Calcium,Total 8.9 mg/dL (8.5-10.1); Chloride 102 mmol/L (98-107); Creatinine, Serum 0.78 mg/dL (0.70-1.30); EST Glomerular Filtration Rate 103 mL/min (>60); Est Glom Filt Rate - Afr Amer 125 mL/min (>60); Globulin 3.9 g/dL (2.2-4.2); Glucose 102 mg/dL (74-106); Potassium 3.8 mmol/L (3.5-5.1); Protein, Total 7.9 g/dL (6.4-8.2); Sodium Level 135 mmol/L (136-145); Thyroid Stim Hormone (TSH) 0.63 uIU/mL (0.358-3.74)
== END | disposition home or self-care (01) ==
LOC: POLAB3 11:00
PROVIDERS: PCP Family Medicine Geriatric Medicine; Visit Provider Family Medicine Geriatric Medicine
DX: I10 Essential (primary) hypertension (principal); E55.9 Vitamin D deficiency, unspecified
CPT/HCPCS: 36415; 80053; 82306; 84443; 85025

== ENCOUNTER → 2023-09-19 | Outpatient (CLI) | payer MEDICARE, OTHER, SELFPAY ==
[2023-09-19 12:50] LABS: Vitamin D,25 Hydroxy 27.6 ng/mL
[2023-09-19 12:53] LABS: Absolute Lymphocyte Count 0.21 X10^3/uL (0.83-4.51); Absolute Neutrophil Count 3.9 X10^3/uL (2.0-7.7); Basophil# 0.04 X10^3/uL; Basophil% 0.8 % (0-1); Eosinophil# 0.12 X10^3/uL; Eosinophils% 2.4 % (0-5); Hematocrit 43.2 % (40-54); Hemoglobin 15.1 g/dL (13.0-16.5); Lymphocyte # 0.21 X10^3/ul (0.83-4.51); Lymphocyte % 4.2 % (19-41); Mean Corpuscular Hgb 33.3 pg (27.0-32.0); Mean Corpuscular Volume 95.2 fL (80-94); Mean Platelet Vol. 9.4 fl (6.2-12.0); Monocyte# 0.72 X10^3/uL; Monocyte% 14.4 % (0-10); NRBC Flagged by Analyzer 0 % (0-5); Neutrophil # 3.88 X10^3/uL (2.7-7.7); Neutrophil % 77.8 % (47-70); POSITIVE DIFFERENTIAL YES; Platelet Count 229 K/mm3 (150-450); RBC Distribution Width CV 12.7 % (11.6-14.6); RBC Distribution Width SD 44.6 fl (35.1-43.9); Red Blood Count 4.54 M/mm3 (4.6-6.2)
[2023-09-19 13:54] LABS: AST(SGOT) 31 U/L (15-37); Alanine Aminotransfer ALT/SGPT 29 U/L (16-61); Albumin, Serum 3.9 g/dL (3.2-5.0); Alkaline Phosphatase 67 U/L (45-117); Anion Gap 6 (5-15); BUN 13 mg/dL (7-18); BUN/Creat Ratio 18.7 RATIO (10-20); Calcium,Total 9.6 mg/dL (8.5-10.1); Chloride 100 mmol/L (98-107); EST Glomerular Filtration Rate 117 mL/min (>60); Est Glom Filt Rate - Afr Amer 142 mL/min (>60); Globulin 3.8 g/dL (2.2-4.2); Glucose 98 mg/dL (74-106); Potassium 3.7 mmol/L (3.5-5.1); Protein, Total 7.7 g/dL (6.4-8.2); Sodium Level 131 mmol/L (136-145); Thyroid Stim Hormone (TSH) 0.98 uIU/mL (0.358-3.74)
== END | disposition home or self-care (01) ==
LOC: POLAB3 10:42
PROVIDERS: PCP Family Medicine Geriatric Medicine; Visit Provider Family Medicine Geriatric Medicine
DX: I10 Essential (primary) hypertension (principal); E55.9 Vitamin D deficiency, unspecified
CPT/HCPCS: 36415; 80053; 82306; 84443; 85025

== ENCOUNTER → 2024-03-20 | Outpatient (CLI) | payer MEDICARE, OTHER, SELFPAY ==
--- NOTE | 2024-03-20 11:30 | CT_ITS ---
EXAM: CT HEAD WITHOUT INTRAVENOUS CONTRAST CLINICAL INDICATION: CLOSED HEAD INJURY TECHNIQUE: Multiple axial images were obtained of the head without intravenous contrast. This CT exam was performed using one or more of the following dose reduction techniques: automated exposure control, adjustment of the mA and/or kV according to patient size, and/or use of iterative reconstruction technique. RADIATION DOSE: CTDIvol = 44.99 mGy, DLP = 863.60 mGy-cm COMPARISON: No relevant prior studies available. FINDINGS: BRAIN AND EXTRA-AXIAL SPACES: Unremarkable. No intra- or extra-axial hemorrhage. No evidence of acute infarct. No intracranial mass or mass effect. There is preservation of the carrillo/white matter interface. Posterior fossa structures are unremarkable. Ventricles are appropriate for age. No hydrocephalus. Basal cisterns are patent. BONES/JOINTS: Unremarkable. No discrete lytic or blastic abnormalities. SINUSES: Unremarkable as visualized. Clear. MASTOID AIR CELLS: Unremarkable. Clear. ORBITS: Visualized globes, extraocular muscles, optic nerves and retrobulbar fat appear unremarkable. CT/Brain/Head without Contrast IMPRESSION: Negative head/brain CT without intravenous contrast. Electronically Signed: Rodriguez England MD at 12:07 EST ,
[2024-03-20 12:46] LABS: Absolute Lymphocyte Count 0.21 X10^3/uL (0.83-4.51); Absolute Neutrophil Count 5.3 X10^3/uL (2.0-7.7); Basophil# 0.04 X10^3/uL; Basophil% 0.6 % (0-1); Eosinophil# 0.14 X10^3/uL; Eosinophils% 2.2 % (0-5); Hematocrit 41.9 % (40-54); Hemoglobin 14.4 g/dL (13.0-16.5); Lymphocyte # 0.21 X10^3/ul (0.83-4.51); Lymphocyte % 3.3 % (19-41); Mean Corp Hgb Conc 34.4 g/dL (32-36); Mean Corpuscular Hgb 31.8 pg (27.0-32.0); Mean Corpuscular Volume 92.5 fL (80-94); Monocyte# 0.64 X10^3/uL; NRBC Flagged by Analyzer 0 % (0-5); Neutrophil # 5.33 X10^3/uL (2.7-7.7); Neutrophil % 83.6 % (47-70); POSITIVE DIFFERENTIAL YES; Platelet Count 231 K/mm3 (150-450); RBC Distribution Width CV 12.6 % (11.6-14.6); RBC Distribution Width SD 42.9 fl (35.1-43.9); Red Blood Count 4.53 M/mm3 (4.6-6.2); White Blood Count 6.4 K/mm3 (4.4-11.0)
[2024-03-20 13:16] LABS: Vitamin D,25 Hydroxy 28.2 ng/mL
[2024-03-20 13:21] LABS: ALB/GLOB Ratio 1.1 RATIO (0.9-2.4); AST(SGOT) 28 U/L (15-37); Alanine Aminotransfer ALT/SGPT 26 U/L (16-61); Albumin, Serum 3.8 g/dL (3.2-5.0); Alkaline Phosphatase 68 U/L (45-117); Anion Gap 6 (5-15); BUN 12 mg/dL (7-18); BUN/Creat Ratio 17.1 RATIO (10-20); Calcium,Total 9.3 mg/dL (8.5-10.1); Chloride 101 mmol/L (98-107); EST Glomerular Filtration Rate 117 mL/min (>60); Est Glom Filt Rate - Afr Amer 141 mL/min (>60); Globulin 3.6 g/dL (2.2-4.2); Glucose 100 mg/dL (74-106); Potassium 3.7 mmol/L (3.5-5.1); Protein, Total 7.4 g/dL (6.4-8.2); Sodium Level 133 mmol/L (136-145); Thyroid Stim Hormone (TSH) 0.647 uIU/mL (0.358-3.740)
== END | disposition home or self-care (01) ==
PROVIDERS: PCP Family Medicine Geriatric Medicine; Referring Provider Family Medicine Geriatric Medicine; Visit Provider Family Medicine Geriatric Medicine
DX: I10 Essential (primary) hypertension (principal); E55.9 Vitamin D deficiency, unspecified; S09.90XA Unspecified injury of head, initial encounter; X58.XXXA Exposure to other specified factors, initial encounter
CPT/HCPCS: 36415; 70450; 80053; 82306; 84443; 85025

== ENCOUNTER → 2024-09-19 | Outpatient (CLI) | payer MEDICARE, OTHER, SELFPAY ==
[2024-09-19 10:50] LABS: Hematocrit 42.8 % (40-54); Hemoglobin 15.3 g/dL (13.0-16.5); Immature Granulocytes Count 0.040 X10^3/uL (0.0-0.0); Mean Corp Hgb Conc 35.7 g/dL (32-36); Mean Corpuscular Volume 93.0 fL (80-94); Mean Platelet Vol. 9.0 fl (6.2-12.0); NRBC Flagged by Analyzer 0 % (0-5); POSITIVE DIFFERENTIAL YES; Platelet Count 229 K/mm3 (150-450); RBC Distribution Width CV 12.5 % (11.6-14.6); RBC Distribution Width SD 42.5 fl (35.1-43.9); Red Blood Count 4.60 M/mm3 (4.6-6.2); White Blood Count 5.6 K/mm3 (4.4-11.0)
[2024-09-19 12:34] LABS: AST(SGOT) 39 U/L (<=37); Alanine Aminotransfer ALT/SGPT 26 U/L (<=46); Albumin, Serum 4.6 g/dL (3.4-4.8); Alkaline Phosphatase 72 U/L (40-129); Anion Gap 12 (5-15); BUN 12 mg/dL (4-19); BUN/Creat Ratio 16.0 RATIO (10-20); Calcium,Total 9.5 mg/dL (7.6-11.0); Carbon Dioxide 23.5 mmol/L (21.0-32.0); Chloride 98 mmol/L (98-108); Globulin 3.0 g/dL (2.2-4.2); Glucose 90 mg/dL (70-99); Potassium 3.8 mmol/L (3.3-5.1); Vitamin D,25 Hydroxy 45.6 ng/mL (30-100)
--- OUTSIDE RECORDS SUMMARY | 2024-09-19 20:45 | XMS RPT_ITS | CCD ---
Author Organization [facility] Care Team Providers Care Tie Carrier Name Role Phone Raman, Mohinder Chi Primary Care Unavailable Raman, Mohinder Chi Attending Unavailable Raman, Mohinder Chi Attending Unavailable Raman, Mohinder Chi Referring Unavailable Raman, Mohinder Chi Primary Care Unavailable Allergies Allergy Classification Reported Allergen(s) Allergy Type Date of Onset Reaction(s) Facility (6 sources) Lisinopril Drug Allergy 09-16-2014 Angioedema [facility] (7 sources) Penicillins; Translations: [Penicillins] Allergy to substance 09-14-2014 Unknown [facility] (2 sources) BLUE CHEESE DRESSING Allergy to substance 09-14-2014 Swelling [facility] Work Phone: (5 sources) Food Allergies: Uncoded; Translations: [Food Allergies: Uncoded] Allergy to substance 02-18-2022 Swelling [facility] (1 source) Lisinopril Drug Allergy 09-16-2014 [facility] Repository Medications Current Medications Medication Drug Class(es) Dates Sig (Normalized) Sig (Original) amLODIPine 5 mg oral tablet (6 sources) Dihydropyridine Calcium Channel Andreas Start: 09-17-2014 take 5 mg by mouth once daily Amlodipine Active 5 MG PO DAILY September 16, 2014 11:00pm aspirin 81 mg chewable tablet (6 sources) Platelet Aggregation Inhibitor, Nonsteroidal Anti-inflammatory Drug Start: 09-15-2014 take 81 mg by mouth once daily Aspirin Active 81 MG PO DAILY@0800 September 14, 2014 11:00pm diphenhydrAMINE hydrochloride 25 mg oral capsule (6 sources) Histamine-1 Receptor Antagonist Start: 09-17-2014 take 2 capsules by mouth every six hours Diphenhydramine Hcl (Benadryl) 25 MG capsule Active 50 MG PO EVERY 6 HOURS September 16, 2014 11:00pm [id number] 0.3 ml EPINEPHrine 1 mg/ml auto-injector (6 sources) alpha-Adrenergic Agonist, beta-Adrenergic Agonist, Catecholamine Start: 09-17-2014 Epinephrine Active 0.3 MG IM DIRECTED September 16, 2014 11:00pm use as directed Bxkpvmkw-Mrzyziduw-H -Manganese (Cosamin Ds (With Manganese)) 1 EACH capsule (6 sources) Start: 09-15-2014 take 1 capsule by mouth once daily Glucosam-Chondroit- C-Manganese (Cosamin Ds (With Manganese)) 1 EACH capsule Active 2 EACH PO DAILY September 14, 2014 11:00pm Start: 09-15-2014 take 1 capsule by mouth once daily Qvcdjcss-Plghhjzuw-J-Manganese (Cosamin Ds (With Manganese)) 1 EACH capsule Active 2 EACH PO DAILY September 15, 2014 12:00am hydroCHLOROthiazide 25 mg oral tablet (6 sources) Thiazide Diuretic Start: 09-17-2014 take 25 mg by mouth once daily Hydrochlorothiazide Active 25 MG PO DAILY September 16, 2014 11:00pm loratadine 10 mg oral tablet (6 sources) Start: 09-17-2014 take 1 tablet by mouth once daily Loratadine (Allergy Relief (Loratadine)) 10 MG tablet Active 10 MG PO DAILY September 16, 2014 11:00pm Multivitamin With Folic Acid (Thera) 1 TABLET tablet (6 sources) Start: 09-15-2014 take 1 tablet by mouth once daily Multivitamin With Folic Acid (Thera) 1 TABLET tablet Active 1 TABLET PO DAILY September 14, 2014 11:00pm Start: 09-15-2014 take 1 tablet by taurus once daily Multivitamin With Folic Acid (Thera) 1 TABLET tablet Active 1 TABLET PO DAILY September 15, 2014 12:00am terazosin 5 mg oral capsule (6 sources) alpha-Adrenergic Andreas Start: 09-15-2014 take 10 mg by mouth at dinner Terazosin Active 10 MG PO WITH DINNER September 14, 2014 11:00pm vitamin b6 50 mg oral tablet (6 sources) Start: 09-15-2014 take 100 mg by mouth once daily Pyridoxine (Vitamin B6) Active 100 MG PO DAILY September 14, 2014 11:00pm Completed/Discontinued Medications Medication Drug Class(es) Dates Sig (Normalized) Sig (Original) hydroCHLOROthiazide 12.5 mg / lisinopril 20 mg oral tablet (6 sources) Thiazide Diuretic, Angiotensin Converting Enzyme Inhibitor Start: 09-15-2014 End: 09-17-2014 Lisinopril-Hydroc hlorothiazide (Zestoretic 20-12.5 Mg Tablet) 1 EACH tablet Discontinued 1 EACH PO DAILY September 14, 2014 11:00pm September 17, 2014 7:50am Problems Problem Classification Problem Date Documented Da te Episodic/Chronic Essential hypertension (7 sources) Hypertensive disorder; Translations: [Essential (primary) hypertension] Onset: 04-11-2024 09-14-2014 Chronic Osteoarthritis (6 sources) Osteoarthritis; Translations: [Unspecified osteoarthritis, unspecified site] 09-14-2014 Chronic Results Test Name Value Interpretation Reference Range Facility Brain/Head without Contrasto n 03-20-2024 Brain/Head without Contrast [facility] Imaging Services [address] [place] [address] [id number] Brain/Head without Contrast MR#: [id number] Acct: [id number] Name: AVELINA TREJO Rep #: [id number] : 1950 73 From: Rodriguez England MD PCP: Dr. Mohinder Camargo MD Status: REG CL Study: Brain/Head without Contrast Date of Exam: 11/04 Exam# [id number] Ordering Dr: Mohinder Camargo MD -[id number] EXAM: CT HEAD WITHOUT INTRAVENOUS CONTRAST CLINICAL INDICATION: CLOSED HEAD INJURY TECHNIQUE: Multiple axial images were obtained of the head without intravenous contrast. This CT exam was performed using one or more of the following dose reduction techniques: automated exposure control, adjustment of the mA and/or kV according to patient size, and/or use of iterative reconstruction technique. RADIATION DOSE: CTDIvol = 44.99 mGy, DLP = 863.60 mGy-cm COMPARISON: No relevant prior studies available. FINDINGS: BRAIN AND EXTRA-AXIAL SPACES: Unremarkable. No intra- or extra-axial hemorrhage. No evidence of acute infarct. No intracranial mass or mass effect. There is preservation of the carrillo/white matter interface. Posterior fossa structures are unremarkable. Ventricles are appropriate for age. No hydrocephalus. Basal cisterns are patent. BONES/JOINTS: Unremarkable. No discrete lytic or blastic abnormalities. SINUSES: Unremarkable as visualized. Clear. MASTOID AIR CELLS: Unremarkable. Clear. ORBITS: Visualized globes, extraocular muscles, optic nerves and retrobulbar fat appear unremarkable. CT/Brain/Head without Contrast IMPRESSION: Negative head/brain CT without intravenous contrast. Electronically Signed: Rodriguez Engladn MD at 12:07 EST , CC: Dr. Mohinder Camargo MD Sole Assessor: Signed Normal [facility] CBC W/Diff, Automatedon -0 -2024 Absolute Lymph 0.21 X10 3/uL Low 0.83-4.51 [facility] Comment on above: Performed By: #### L 100.0100, L506.1000, L501.9520, L500.4050 #### [facility] [address] [place], [address] Absolute Neut 5.3 X10 3/uL Normal 2.0-7.7 [facility] Comment on above: Performed By: #### L 100.0100, L506.1000, L501.9520, L500.4050 #### [facility] [address] [place], [address] Basophils/100 WBC (Bld) 0.6 % Normal 0-1 [facility] Comment on above: Performed By: #### L 100.0100, L506.1000, L501.9520, L500.4050 #### [facility] [address] [place], [address] Eosinophils/100 WBC (Bld) 2.2 % Normal 0-5 [facility] Comment on above: Performed By: #### L 100.0100, L506.1000, L501.9520, L500.4050 #### [facility] [address] [place], [address] Erythrocyte distribution width (RBC) [Ratio] 12.6 % Normal 11.6-14.6 [facility] Comment on above: Performed By: #### L 100.0100, L506.1000, L501.9520, L500.4050 #### [facility] [address], [address] Hematocrit (Bld) [Volume fraction] 41.9 % Normal 40-54 [facility] Comment on above: Performed By: #### L 100.0100, L506.1000, L501.9520, L500.4050 #### [facility] [address] [place], [address] Hemoglobin (Bld) [Mass/Vol] 14.4 g/dL Normal 13.0-16.5 [facility] Comment on above: Performed By: #### L 100.0100, L506.1000, L501.9520, L500.4050 #### [facility] [address], [address] IG% 0.300 Normal 0.0-0.9 [facility] Comment on above: Result Comment: IG% - Immature Granulocytes (promyelocytes, myelocytes and metamyelocytes) > 1% indicates that a LEFT SHIFT is Present. Performed By: #### L 100.0100, L506.1000, L501.9520, L500.4050 #### [facility] [address] [place], [address] Lymphocytes/100 WBC (Bld) 3.3 % Low 19-41 [facility] Comment on above: Performed By: #### L 100.0100, L506.1000, L501.9520, L500.4050 #### [facility] [address], [address] MCH (RBC) [Entitic mass] 31.8 pg Normal 27.0-32.0 [facility] Comment on above: Performed By: #### L 100.0100, L506.1000, L501.9520, L500.4050 #### [facility] [address] [place], [address] MCHC (RBC) [Mass/Vol] 34.4 g/dL Normal 32-36 [facility] Comment on above: Performed By: #### L 100.0100, L506.1000, L501.9520, L500.4050 #### [facility] [address] [place], [address] MCV (RBC) [Entitic vol] 92.5 fL Normal 80-94 [facility] Comment on above: Performed By: #### L 100.0100, L506.1000, L501.9520, L500.4050 #### [facility] [address] [place], [address] Monocytes/100 WBC (Bld) 10.0 % Normal 0-10 [facility] Comment on above: Performed By: #### L 100.0100, L506.1000, L501.9520, L500.4050 #### [facility] [address] [place], [address] Neutrophils/100 WBC (Bld) 83.6 % High 47-70 [facility] Comment on above: Performed By: #### L 100.0100, L506.1000, L501.9520, L500.4050 #### [facility] [address] [place], [address] Nucleated RBC (Bld) [#/Vol] 0 10*3/uL Normal 0-5 [facility] Comment on above: Performed By: #### L 100.0100, L506.1000, L501.9520, L500.4050 #### [facility] [address] [place], [address] Platelet mean volume (Bld) [Entitic vol] 9.0 fL Normal 6.2-12.0 [facility] Comment on above: Performed By: #### L 100.0100, L506.1000, L501.9520, L500.4050 #### [facility] [address] [place], [address] Platelets (Bld) [#/Vol] 231 10*3/uL Normal 150-450 [facility] Comment on above: Performed By: #### L 100.0100, L506.1000, L501.9520, L500.4050 #### [facility] [address] [place], [address] RBC (Bld) [#/Vol] 4.53 10*6/uL Low 4.6-6.2 [facility] Comment on above: Performed By: #### L 100.0100, L506.1000, L501.9520, L500.4050 #### [facility] [address] [place], [address] RDW SD 42.9 fl Normal 35.1-43.9 [facility] Comment on above: Performed By: #### L 100.0100, L506.1000, L501.9520, L500.4050 #### [facility] [address] [place], [address] WBC (Bld) [#/Vol] 6.4 10*3/uL Normal 4.4-11.0 [facility] Comment on above: Performed By: #### L 100.0100, L506.1000, L501.9520, L500.4050 #### [facility] [address] [place], [address] Comprehensive Metabolic Prof [facility] 03-20-2024 Albumin [Mass/Vol] 3.8 g/dL Normal 3.2-5.0 [facility] Comment on above: Performed By: #### L 100.0100, L506.1000, L501.9520, L500.4050 #### [facility] [address] [place], [address] Albumin/Globulin [Mass ratio] 1.1 {ratio} Normal 0.9-2.4 [facility] Comment on above: Performed By: #### L 100.0100, L506.1000, L501.9520, L500.4050 #### [facility] [address] [place], [address] ALK P 68 U/L Normal 45-117 [facility] Comment on above: Performed By: #### L 100.0100, L506.1000, L501.9520, L500.4050 #### [facility] [address] [place], [address] ALT [Catalytic activity/Vol] 26 U/L Normal 16-61 [facility] Comment on above: Performed By: #### L 100.0100, L506.1000, L501.9520, L500.4050 #### [facility] [address] [place], [address] AST [Catalytic activity/Vol] 28 U/L Normal 15-37 [facility] Comment on above: Performed By: #### L 100.0100, L506.1000, L501.9520, L500.4050 #### [facility] [address] [place], [address] Bilirubin [Mass/Vol] 0.50 mg/dL Normal 0.20-1.00 [facility] Comment on above: Result Comment: For patients on eltrombopag therapy, use of Dimension [place] TBIL is not recommended. Performed By: #### L 100.0100, L506.1000, L501.9520, L500.4050 #### [facility] [address] [place], [address] BUN/CRE 17.1 RATIO Normal 10-20 [facility] Comment on above: Performed By: #### L 100.0100, L506.1000, L501.9520, L500.4050 #### [facility] [address] [place], [address] CA,Total 9.3 mg/dL Normal 8.5-10.1 [facility] Comment on above: Performed By: #### L 100.0100, L506.1000, L501.9520, L500.4050 #### [facility] [address] [place], [address] Chloride [Moles/Vol] 101 mmol/L Normal 98-107 [facility] Comment on above: Performed By: #### L 100.0100, L506.1000, L501.9520, L500.4050 #### [facility] [address] [place], [address] CO2 [Moles/Vol] 26.0 mmol/L Normal 21.0-32.0 [facility] Comment on above: Performed By: #### L 100.0100, L506.1000, L501.9520, L500.4050 #### [facility] [address] [place], [address] Creatinine [Mass/Vol] 0.70 mg/dL Normal 0.70-1.30 [facility] Comment on above: Result Comment: The validity of the calculated GFR GFRAA in patients over 70 years has not been determined. Clinical correlation is essential. Performed By: #### L 100.0100, L506.1000, L501.9520, L500.4050 #### [facility] [address] [place], [address] EST GFR - AA 141 mL/min Normal >60 [facility] Comment on above: Result Comment: Afri can Guinean GFR Calc Performed By: #### L 100.0100, L506.1000, L501.9520, L500.4050 #### [facility] [address] [place], [address] GAP 6 Normal 5-15 [facility] Comment on above: Performed By: #### L 100.0100, L506.1000, L501.9520, L500.4050 #### [facility] [address] [place], [address] GFR/1.73 sq M.predicted among non-blacks MDRD (S/P/Bld) [Vol rate/Area] 117 mL/min/{1.73_m2} Normal >60 [facility] Comment on above: Result Comment: Non- GFR Calc Performed By: #### L 100.0100, L506.1000, L501.9520, L500.4050 #### [facility] [address] [place], [address] Globulin (S) [Mass/Vol] 3.6 g/dL Normal 2.2-4.2 [facility] Comment on above: Performed By: #### L 100.0100, L506.1000, L501.9520, L500.4050 #### [facility] [address] [place], [address] Glucose [Mass/Vol] 100 mg/dL Normal 74-106 [facility] Comment on above: Result Comment: Fast ing Glucose result from 100 to 125 mg/dL suggests IMPAIRED HOMEOSTASIS per A.D.A. criteria. Performed By: #### L 100.0100, L506.1000, L501.9520, L500.4050 #### [facility] [address] [place], [address] Potassium [Moles/Vol] 3.7 mmol/L Normal 3.5-5.1 [facility] Comment on above: Performed By: #### L 100.0100, L506.1000, L501.9520, L500.4050 #### [facility] [address] [place], [address] Sodium [Moles/Vol] 133 mmol/L Low 136-145 [facility] Comment on above: Performed By: #### L 100.0100, L506.1000, L501.9520, L500.4050 #### [facility] [address] [place], [address] T PROT 7.4 g/dL Normal 6.4-8.2 [facility] Comment on above: Performed By: #### L 100.0100, L506.1000, L501.9520, L500.4050 #### [facility] [address] [place], [address] Urea nitrogen [Mass/Vol] 12 mg/dL Normal 7-18 [facility] Comment on above: Performed By: #### L 100.0100, L506.1000, L501.9520, L500.4050 #### [facility] [address] [place], [address] Thyroid Stim Hormone (TSH)on 03-20-2024 TSH 0.647 uIU/mL Normal 0.358-3.740 [facility] Comment on above: Performed By: #### L 100.0100, L506.1000, L501.9520, L500.4050 #### [facility] [address] [place], [address] Vitamin D,25 Hydroxyon 03-20 Vitamin D 25-OH 28.2 ng/mL Normal [facility] Comment on above: Result Comment: Nakia min D 25(OH) Status Range Deficiency <20 ng/mL (50nmol/L) Insufficiency 20 - 30 ng/mL (50 - 75 nmol/L) Sufficiency 30 - 100 ng/mL (75 - 250 nmol/L) Toxicity >100 ng/mL (>250 nmol/L) Performed By: #### L 100.0100, L506.1000, L501.9520, L500.4050 #### [facility] [address] [place], [address] CBC W/Diff, Automatedon 07-0 9-2024 Absolute Lymph 0.21 X10 3/uL Low 0.83-4.51 [facility] Comment on above: Performed By: #### L 500.4050, L506.1000, L501.9520, L100.0100 #### [facility] [address] [place], [address] Absolute Neut 3.9 X10 3/uL Normal 2.0-7.7 [facility] Comment on above: Performed By: #### L 500.4050, L506.1000, L501.9520, L100.0100 #### [facility] [address] [place], [address] Basophils/100 WBC (Bld) 0.8 % Normal 0-1 [facility] Comment on above: Performed By: #### L 500.4050, L506.1000, L501.9520, L100.0100 #### [facility] [address] [place], [address] Eosinophils/100 WBC (Bld) 2.4 % Normal 0-5 [facility] Comment on above: Performed By: #### L 500.4050, L506.1000, L501.9520, L100.0100 #### [facility] [address] [place], [address] Erythrocyte distribution width (RBC) [Ratio] 12.7 % Normal 11.6-14.6 [facility] Comment on above: Performed By: #### L 500.4050, L506.1000, L501.9520, L100.0100 #### [facility] [address] [place], [address] Hematocrit (Bld) [Volume fraction] 43.2 % Normal 40-54 [facility] Comment on above: Performed By: #### L 500.4050, L506.1000, L501.9520, L100.0100 #### [facility] [address] [place], [address] Hemoglobin (Bld) [Mass/Vol] 15.1 g/dL Normal 13.0-16.5 [facility] Comment on above: Performed By: #### L 500.4050, L506.1000, L501.9520, L100.0100 #### [facility] [address] [place], [address] IG% 0.400 Normal 0.0-0.9 [facility] Comment on above: Result Comment: IG% - Immature Granulocytes (promyelocytes, myelocytes and metamyelocytes) > 1% indicates that a LEFT SHIFT is Present. Performed By: #### L 500.4050, L506.1000, L501.9520, L100.0100 #### [facility] [address] [place], [address] Lymphocytes/100 WBC (Bld) 4.2 % Low 19-41 [facility] Comment on above: Performed By: #### L 500.4050, L506.1000, L501.9520, L100.0100 #### [facility] [address] [place], [address] MCH (RBC) [Entitic mass] 33.3 pg High 27.0-32.0 [facility] Comment on above: Performed By: #### L 500.4050, L506.1000, L501.9520, L100.0100 #### [facility] [address] [place], [address] MCHC (RBC) [Mass/Vol] 35.0 g/dL Normal 32-36 [facility] Comment on above: Performed By: #### L 500.4050, L506.1000, L501.9520, L100.0100 #### [facility] [address] [place], [address] MCV (RBC) [Entitic vol] 95.2 fL High 80-94 [facility] Comment on above: Performed By: #### L 500.4050, L506.1000, L501.9520, L100.0100 #### [facility] [address] [place], [address] Monocytes/100 WBC (Bld) 14.4 % High 0-10 [facility] Comment on above: Performed By: #### L 500.4050, L506.1000, L501.9520, L100.0100 #### [facility] [address] [place], [address] Neutrophils/100 WBC (Bld) 77.8 % High 47-70 [facility] Comment on above: Performed By: #### L 500.4050, L506.1000, L501.9520, L100.0100 #### [facility] [address] [place], [address] Nucleated RBC (Bld) [#/Vol] 0 10*3/uL Normal 0-5 [facility] Comment on above: Performed By: #### L 500.4050, L506.1000, L501.9520, L100.0100 #### [facility] [address] [place], [address] Platelet mean volume (Bld) [Entitic vol] 9.4 fL Normal 6.2-12.0 [facility] Comment on above: Performed By: #### L 500.4050, L506.1000, L501.9520, L100.0100 #### [facility] [address] [place], [address] Platelets (Bld) [#/Vol] 229 10*3/uL Normal 150-450 [facility] Comment on above: Performed By: #### L 500.4050, L506.1000, L501.9520, L100.0100 #### [facility] [address] [place], [address] RBC (Bld) [#/Vol] 4.54 10*6/uL Low 4.6-6.2 [facility] Comment on above: Performed By: #### L 500.4050, L506.1000, L501.9520, L100.0100 #### [facility] [address] [place], [address] RDW SD 44.6 fl High 35.1-43.9 [facility] Comment on above: Performed By: #### L 500.4050, L506.1000, L501.9520, L100.0100 #### [facility] [address] [place], [address] WBC (Bld) [#/Vol] 5.0 10*3/uL Normal 4.4-11.0 [facility] Comment on above: Performed By: #### L 500.4050, L506.1000, L501.9520, L100.0100 #### [facility] [address] [place], [address] Comprehensive Metabolic Prof [facility] 09-19-2023 Albumin [Mass/Vol] 3.9 g/dL Normal 3.2-5.0 [facility] Comment on above: Performed By: #### L 500.4050, L506.1000, L501.9520, L100.0100 #### [facility] [address] [place], [address] Albumin/Globulin [Mass ratio] 1.0 {ratio} Normal 0.9-2.4 [facility] Comment on above: Performed By: #### L 500.4050, L506.1000, L501.9520, L100.0100 #### [facility] [address] [place], [address] ALK P 67 U/L Normal 45-117 [facility] Comment on above: Performed By: #### L 500.4050, L506.1000, L501.9520, L100.0100 #### [facility] [address] [place], [address] ALT [Catalytic activity/Vol] 29 U/L Normal 16-61 [facility] Comment on above: Performed By: #### L 500.4050, L506.1000, L501.9520, L100.0100 #### [facility] [address] [place], [address] AST [Catalytic activity/Vol] 31 U/L Normal 15-37 [facility] Comment on above: Performed By: #### L 500.4050, L506.1000, L501.9520, L100.0100 #### [facility] [address] [place], [address] Bilirubin [Mass/Vol] 0.70 mg/dL Normal 0.20-1.00 [facility] Comment on above: Result Comment: For patients on eltrombopag therapy, use of Dimension [place] TBIL is not recommended. Performed By: #### L 500.4050, L506.1000, L501.9520, L100.0100 #### [facility] [address] [place], [address] BUN/CRE 18.7 RATIO Normal 10-20 [facility] Comment on above: Performed By: #### L 500.4050, L506.1000, [id number], L100.0100 #### [facility] [address] [place], [address] CA,Total 9.6 mg/dL Normal 8.5-10.1 [facility] Comment on above: Performed By: #### L 500.4050, L506.1000, [id number], L100.0100 #### [facility] [address] [place], [address] Chloride [Moles/Vol] 100 mmol/L Normal 98-107 [facility] Comment on above: Performed By: #### L 500.4050, L506.1000, [id number], L100.0100 #### [facility] [address] [place], [address] CO2 [Moles/Vol] 25.0 mmol/L Normal 21.0-32.0 [facility] Comment on above: Performed By: #### L 500.4050, L506.1000, [id number], L100.0100 #### [facility] [address] [place], [address] Creatinine [Mass/Vol] 0.70 mg/dL Normal 0.70-1.30 [facility] Comment on above: Result Comment: The validity of the calculated GFR GFRAA in patients over 70 years has not been determined. Clinical correlation is essential. Performed By: #### L 500.4050, L506.1000, [id number], L100.0100 #### [facility] [address] [place], [address] EST GFR - AA 142 mL/min Normal >60 [facility] Comment on above: Result Comment: Afri can Guinean GFR Calc Performed By: #### L 500.4050, L506.1000, [id number], L100.0100 #### [facility] [address] [place], [address] GAP 6 Normal 5-15 [facility] Comment on above: Performed By: #### L 500.4050, L506.1000, [id number], L100.0100 #### [facility] [address] [place], [address] GFR/1.73 sq M.predicted among non-blacks MDRD (S/P/Bld) [Vol rate/Area] 117 mL/min/{1.73_m2} Normal >60 [facility] Comment on above: Result Comment: Non- GFR Calc Performed By: #### L 500.4050, L506.1000, [id number], L100.0100 #### [facility] [address] [place], [address] Globulin (S) [Mass/Vol] 3.8 g/dL Normal 2.2-4.2 [facility] Comment on above: Performed By: #### L 500.4050, L506.1000, [id number], L100.0100 #### [facility] [address] [place], [address] Glucose [Mass/Vol] 98 mg/dL Normal 74-106 [facility] Comment on above: Performed By: #### L 500.4050, L506.1000, [id number], L100.0100 #### [facility] [address] [place], [address] Potassium [Moles/Vol] 3.7 mmol/L Normal 3.5-5.1 [facility] Comment on above: Performed By: #### L 500.4050, L506.1000, [id number], L100.0100 #### [facility] [address] [place], [address] Sodium [Moles/Vol] 131 mmol/L Low 136-145 [facility] Comment on above: Performed By: #### L 500.4050, L506.1000, [id number], L100.0100 #### [facility] [address] [place], [address] T PROT 7.7 g/dL Normal 6.4-8.2 [facility] Comment on above: Performed By: #### L 500.4050, L506.1000, [id number], L100.0100 #### [facility] [address] [place], [address] Urea nitrogen [Mass/Vol] 13 mg/dL Normal 7-18 [facility] Comment on above: Performed By: #### L 500.4050, L506.1000, [id number], L100.0100 #### [facility] [address] [place], [address] Thyroid Stim Hormone (TSH)on 09-19-2023 TSH 0.98 uIU/mL Normal 0.358-3.74 [facility] Comment on above: Performed By: #### L 500.4050, L506.1000, [id number], L100.0100 #### [facility] [address] [place], [address] Vitamin D,25 Hydroxyon 09-18 Vitamin D 25-OH 27.6 ng/mL Normal [facility] Comment on above: Result Comment: Nakia min D 25(OH) Status Range Deficiency <20 ng/mL (50nmol/L) Insufficiency 20 - 30 ng/mL (50 - 75 nmol/L) Sufficiency 30 - 100 ng/mL (75 - 250 nmol/L) Toxicity >100 ng/mL (>250 nmol/L) Performed By: #### L 500.4050, L506.1000, [id number], L100.0100 #### [facility] [address] [place], [address] Absolute lymphocyte countOrd ered By: Mohinder Camargo on 03-16-2023 Lymphocytes Auto (Unsp spec) [#/Vol] 0.18 10*3/uL 0.83-4.51 [facility] Basophil percentageOrdered B y: Mohinder Camargo on 03-16-2023 Basophils/100 WBC (Bld) 1.1 % 0-1 [facility] Bilirubin [Mass/Vol] 0.50 mg/dL 0.20-1.00 [facility] Comment on above: For patients on eltr ombopag therapy, use of Dimension [place] TBIL is not recommended. Chloride [Moles/Vol] 102 mmol/L 98-107 [facility] Eosinophils/100 WBC (Bld) 3.0 % 0-5 [facility] Glucose [Mass/Vol] 102 mg/dL 74-106 [facility] Comment on above: Fasting Glucose resu lt from 100 to 125 mg/dL suggests IMPAIRED HOMEOSTASIS per A.D.A. criteria. Neutrophils (Bld) [#/Vol] 3.7 10*3/uL 2.0-7.7 [facility] Neutrophils/100 WBC (Bld) 78.1 % 47-70 [facility] Potassium [Moles/Vol] 3.8 mmol/L 3.5-5.1 [facility] Protein [Mass/Vol] 7.9 g/dL 6.4-8.2 [facility] Sodium [Moles/Vol] 135 mmol/L 136-145 [facility] WBC (Bld) [#/Vol] 4.7 10*3/uL 4.4-11.0 [facility] Blood erythrocytes count (nu mber/volume)Ordered By: Mohinder Camargo on 03-16-2023 RBC (Bld) [#/Vol] 4.80 10*6/uL 4.6-6.2 [facility] Blood hemoglobin measurement (mass/volume)Ordered By: Mohinder Camargo on 03-16-2023 Hemoglobin (Bld) [Mass/Vol] 15.5 g/dL 13.0-16.5 [facility] Blood lymphocytes/100 leukoc ytesOrdered By: Mohinder Camargo on 03-16-2023 Lymphocytes/100 WBC (Bld) 3.8 % 19-41 [facility] Blood monocytes/100 leukocyt esOrdered By: Mohinder Camargo on 03-16-2023 Monocytes/100 WBC (Bld) 13.8 % 0-10 [facility] Blood platelet mean volumeOr dered By: Mohinder Camargo on 03-16-2023 Platelet mean volume (Bld) [Entitic vol] 9.2 fL 6.2-12.0 [facility] Determination of erythrocyte mean corpuscular volume (MCV)Ordered By: Mohinder Camargo on 03-16-2023 MCV (RBC) [Entitic vol] 94.8 fL 80-94 [facility] Hematocrit Auto (Bld) [Volum e fraction]Ordered By: Mohinder Camargo on 03-16-2023 Hematocrit (Bld) [Volume fraction] 45.5 % 40-54 [facility] - Chemistry and C hemistry - challengeOrdered By: Mohinder Camargo on 03-16-2023 ALP [Catalytic activity/Vol] 72 U/L 45-117 [facility] ALT [Catalytic activity/Vol] 29 U/L 16-61 [facility] CO2 [Moles/Vol] 27.0 mmol/L 21.0-32.0 [facility] Globulin (S) [Mass/Vol] 3.9 g/dL 2.2-4.2 [facility] Urea nitrogen/Creatinine [Mass ratio] 17.9 mg/mg 10-20 [facility] - Hematology and Cell countsOrdered By: Mohinder Camargo on 03-16-2023 Erythrocyte distribution width (RBC) [Entitic vol] 44.0 fL 35.1-43.9 [facility] Erythrocyte distribution width (RBC) [Ratio] 12.6 % 11.6-14.6 [facility] Immature granulocytes/100 WBC (Bld) 0.200 % 0.0-0.9 [facility] Comment on above: IG% - Immature Granu locytes (promyelocytes, myelocytes and metamyelocytes) > 1% indicates that a LEFT SHIFT is Present. MCH (RBC) [Entitic mass] 32.3 pg 27.0-32.0 [facility] Nucleated RBC/100 WBC (Bld) [Ratio] 0 % 0-5 [facility] MCHC Auto (RBC) [Mass/Vol]Or dered By: Mohinder Camargo on 03-16-2023 MCHC (RBC) [Mass/Vol] 34.1 g/dL 32-36 [facility] No Panel InformationOrdered By: Mohinder Camargo on 03-16-2023 Estimated GFR (MDRD) Amer 125 mL/min >60 [facility] Comment on above: GFR Calc Estimated GFR (MDRD) Non-Af Amer 103 mL/min >60 [facility] Comment on above: Non- GFR Calc Thyroid Stimulating Hormone (TSH) 0.63 uIU/mL 0.358-3.74 [facility] Vitamin D 25-Hydroxy 26.6 ng/mL [facility] Comment on above: Vitamin D 25(OH) Sta tus Range Deficiency <20 ng/mL (50nmol/L) Insufficiency 20 - 30 ng/mL (50 - 75 nmol/L) Sufficiency 30 - 100 ng/mL (75 - 250 nmol/L) Toxicity >100 ng/mL (>250 nmol/L) Platelets bldOrdered By: Mohinder Camargo on 03-16-2023 Platelets (Bld) [#/Vol] 247 10*3/uL 150-450 [facility] Serum or plasma albumin salbador urement (mass/volume)Ordered By: Mohinder Camargo on 03-16-2023 Albumin [Mass/Vol] 4.0 g/dL 3.2-5.0 [facility] Serum or plasma albumin/glob ulin mass ratioOrdered By: Mohinder Camargo on 03-16-2023 Albumin/Globulin [Mass ratio] 1.0 {ratio} 0.9-2.4 [facility] Serum or plasma calcium salbador urement (mass/volume)Ordered By: Mohinder Camargo on 03-16-2023 Calcium [Mass/Vol] 8.9 mg/dL 8.5-10.1 [facility] Serum or plasma creatinine m easurement (mass/volume)Ordered By: Mohinder Camargo on 03-16-2023 Creatinine [Mass/Vol] 0.78 mg/dL 0.70-1.30 [facility] Comment on above: The validity of the calculated GFR & GFRAA in patients over 70 years has not been determined. Clinical correlation is essential. Serum or plasma urea nitroge n measurement (mass/volume)Ordered By: Mohinder Camargo on 03-16-2023 Urea nitrogen [Mass/Vol] 14 mg/dL 7-18 [facility] Thin prep Papanicolaou smear with manual screeningOrdered By: Mohinder Camargo 03-16-2023 Thin prep Papanicolaou smear with manual screening 36 U/L 15-37 [facility] Thin prep Papanicolaou smear with manual screening 6 5-15 [facility] Absolute lymphocyte countOrd ered By: Mohinder Camargo on 09-07-2022 Lymphocytes Auto (Unsp spec) [#/Vol] 0.20 10*3/uL 0.83-4.51 [facility] Basophil percentageOrdered B y: Mohinder Camargo on 09-07-2022 Basophils/100 WBC (Bld) 0.7 % 0-1 [facility] Bilirubin [Mass/Vol] 0.50 mg/dL 0.20-1.00 [facility] Comment on above: For patients on eltr ombopag therapy, use of Dimension [place] TBIL is not recommended. Chloride [Moles/Vol] 102 mmol/L 98-107 [facility] Eosinophils/100 WBC (Bld) 2.8 % 0-5 [facility] Glucose [Mass/Vol] 99 mg/dL 74-106 [facility] Neutrophils (Bld) [#/Vol] 4.8 10*3/uL 2.0-7.7 [facility] Neutrophils/100 WBC (Bld) 79.5 % 47-70 [facility] Potassium [Moles/Vol] 3.9 mmol/L 3.5-5.1 [facility] Protein [Mass/Vol] 7.7 g/dL 6.4-8.2 [facility] Sodium [Moles/Vol] 135 mmol/L 136-145 [facility] WBC (Bld) [#/Vol] 6.0 10*3/uL 4.4-11.0 [facility] Blood erythrocytes count (nu mber/volume)Ordered By: Mohinder Camargo on 09-07-2022 RBC (Bld) [#/Vol] 4.71 10*6/uL 4.6-6.2 [facility] Blood hemoglobin measurement (mass/volume)Ordered By: Mohinder Camargo on 09-07-2022 Hemoglobin (Bld) [Mass/Vol] 15.4 g/dL 13.0-16.5 [facility] Blood lymphocytes/100 leukoc ytesOrdered By: Mohinder Camargo on 09-07-2022 Lymphocytes/100 WBC (Bld) 3.4 % 19-41 [facility] Blood monocytes/100 leukocyt esOrdered By: Mohinder Camargo on 09-07-2022 Monocytes/100 WBC (Bld) 12.9 % 0-10 [facility] Blood platelet mean volumeOr dered By: Mohinder Camargo on 09-07-2022 Platelet mean volume (Bld) [Entitic vol] 9.0 fL 6.2-12.0 [facility] Determination of erythrocyte mean corpuscular volume (MCV)Ordered By: Mohinder Camargo on 09-07-2022 MCV (RBC) [Entitic vol] 95.5 fL 80-94 [facility] Hematocrit Auto (Bld) [Volum e fraction][facility] Hematocrit (Bld) [Volume fraction] 45.0 % 40-54 [facility] - Chemistry and C hemistry - challengeOrdered By: [facility] on 09-07-2022 ALP [Catalytic activity/Vol] 70 U/L 45-117 [facility] ALT [Catalytic activity/Vol] 30 U/L 16-61 [facility] CO2 [Moles/Vol] 28.0 mmol/L 21.0-32.0 [facility] Globulin (S) [Mass/Vol] 3.7 g/dL 2.2-4.2 [facility] Urea nitrogen/Creatinine [Mass ratio] 18.5 mg/mg 10-20 [facility] - Hematology and Cell countsOrdered By: [facility] 09-07-[facility]22 Erythrocyte distribution width (RBC) [Entitic vol] 43.0 fL 35.1-43.9 [facility] Erythrocyte distribution width (RBC) [Ratio] 12.3 % 11.6-14.6 [facility] Immature granulocytes/100 WBC (Bld) 0.700 % 0.0-0.9 [facility] Comment on above: IG% - Immature Granu locytes (promyelocytes, myelocytes and metamyelocytes) > 1% indicates that a LEFT SHIFT is Present. MCH (RBC) [Entitic mass] 32.7 pg 27.0-32.0 [facility] Nucleated RBC/100 WBC (Bld) [Ratio] 0 % 0-5 [facility] MCHC Auto (RBC) [Mass/Vol]Or dered By: Mohinder Camargo on 09-07-2022 MCHC (RBC) [Mass/Vol] 34.2 g/dL 32-36 [facility] No Panel InformationOrdered By: Mohinder Camargo on 09-07-2022 Estimated GFR (MDRD) Amer 141 mL/min >60 [facility] Comment on above: GFR Calc Estimated GFR (MDRD) Non-Af Amer 116 mL/min >60 [facility] Comment on above: Non- GFR Calc Thyroid Stimulating Hormone (TSH) 0.69 uIU/mL 0.358-3.74 [facility] Vitamin D 25-Hydroxy 35.9 ng/mL [facility] Comment on above: Vitamin D 25(OH) Sta tus Range Deficiency <20 ng/mL (50nmol/L) Insufficiency 20 - 30 ng/mL (50 - 75 nmol/L) Sufficiency 30 - 100 ng/mL (75 - 250 nmol/L) Toxicity >100 ng/mL (>250 nmol/L) Platelets bldOrdered By: Mohinder Camargo on 09-07-2022 Platelets (Bld) [#/Vol] 222 10*3/uL 150-450 [facility] Serum or plasma albumin salbador urement (mass/volume)Ordered By: Mohinder Camargo on 09-07-2022 Albumin [Mass/Vol] 4.0 g/dL 3.2-5.0 [facility] Serum or plasma albumin/glob ulin mass ratioOrdered By: Mohinder Camargo on 09-07-2022 Albumin/Globulin [Mass ratio] 1.1 {ratio} 0.9-2.4 [facility] Serum or plasma calcium salbador urement (mass/volume)Ordered By: Mohinder Camargo on 09-07-2022 Calcium [Mass/Vol] 9.5 mg/dL 8.5-10.1 [facility] Serum or plasma creatinine m easurement (mass/volume)Ordered By: Mohinder Camargo 09-07-2022 Creatinine [Mass/Vol] 0.70 mg/dL 0.70-1.30 [facility] Comment on above: The validity of the calculated GFR & GFRAA in patients over 70 years has not been determined. Clinical correlation is essential. Serum or plasma urea nitroge n measurement (mass/volume)Ordered By: Mohinder Camargo on 09-07-2022 Urea nitrogen [Mass/Vol] 13 mg/dL 7-18 [facility] Thin prep Papanicolaou smear with manual screeningOrdered By: Mohinder Camargo 09-07-2022 Thin prep Papanicolaou smear with manual screening 34 U/L 15-37 [facility] Thin prep Papanicolaou smear with manual screening 5 5-15 [facility] Basophil percentageon 2021 Chloride [Moles/Vol] 104 mmol/L 98-107 [facility] Work Phone: Glucose [Mass/Vol] 99 mg/dL 74-106 [facility] Work Phone: Potassium [Moles/Vol] 3.9 mmol/L 3.5-5.1 [facility] Work Phone: Sodium [Moles/Vol] 137 mmol/L 136-145 [facility] Work Phone: Laboratory - Chemistry and C hemistry - challengeon 03-09-2022 CO2 [Moles/Vol] 26.0 mmol/L 21.0-32.0 [facility] Work Phone: Urea nitrogen/Creatinine [Mass ratio] 19.5 mg/mg 10-20 [facility] Work Phone: No Panel Informationon 03-09 Estimated GFR (MDRD) Amer 128 mL/min >60 [facility] Work Phone: Comment on above: GFR Calc Estimated GFR (MDRD) Non-Af Amer 105 mL/min >60 [facility] Work Phone: Comment on above: Non- GFR Calc Serum or plasma calcium salbador urement (mass/volume)on 03-09-2022 Calcium [Mass/Vol] 9.4 mg/dL 8.5-10.1 [facility] Work Phone: Serum or plasma creatinine m easurement (mass/volume)on 03-09-2022 Creatinine [Mass/Vol] 0.77 mg/dL 0.70-1.30 [facility] Work Phone: Comment on above: The validity of the calculated GFR & GFRAA in patients over 70 years has not been determined. Clinical correlation is essential. Serum or plasma urea nitroge n measurement (mass/volume)on 03-09-2022 Urea nitrogen [Mass/Vol] 15 mg/dL 7-18 [facility] Work Phone: Thin prep Papanicolaou smear with manual screeningon 03-09-2022 Thin prep Papanicolaou smear with manual screening 7 5-15 [facility] Work Phone: Absolute lymphocyte counton 02-28-2022 Lymphocytes Auto (Unsp spec) [#/Vol] 0.26 10*3/uL 0.83-4.51 [facility] Work Phone: Basophil percentageon 2021 Basophils/100 WBC (Bld) 0.6 % 0-1 [facility] Work Phone: Bilirubin [Mass/Vol] 0.50 mg/dL 0.20-1.00 [facility] Work Phone: Comment on above: For patients on eltr ombopag therapy, use of Dimension [place] TBIL is not recommended. Chloride [Moles/Vol] 100 mmol/L 98-107 [facility] Work Phone: Eosinophils/100 WBC (Bld) 1.5 % 0-5 [facility] Work Phone: Glucose [Mass/Vol] 118 mg/dL 74-106 [facility] Work Phone: Comment on above: Fasting Glucose resu lt from 100 to 125 mg/dL suggests IMPAIRED HOMEOSTASIS per A.D.A. criteria. Neutrophils (Bld) [#/Vol] 5.2 10*3/uL 2.0-7.7 [facility] Work Phone: Neutrophils/100 WBC (Bld) 83.0 % 47-70 [facility] Work Phone: Potassium [Moles/Vol] 3.2 mmol/L 3.5-5.1 [facility] Work Phone: Protein [Mass/Vol] 7.6 g/dL 6.4-8.2 [facility] Work Phone: Sodium [Moles/Vol] 136 mmol/L 136-145 [facility] Work Phone: Testosterone [Mass/Vol] 289.06 ng/dL [facility] Work Phone: Comment on above: CENTRAL 90% REFERENC E RANGES MALE AGE <50 197.44 - 669.58 ng/dL MALE AGE > or = 50 187.72 - 684.19 ng/dL FEMALE AGE <50 8.38 - 35.01 ng/dL FEMALE AGE > or = 50 <7.00 - 35.92 ng/dL Effective as of 10/06/20 WBC (Bld) [#/Vol] 6.2 10*3/uL 4.4-11.0 [facility] Work Phone: Blood erythrocytes count (nu mber/volume)on 02-28-2022 RBC (Bld) [#/Vol] 4.53 10*6/uL 4.6-6.2 [facility] Work Phone: Blood hemoglobin measurement (mass/volume)on 02-28-2022 Hemoglobin (Bld) [Mass/Vol] 14.8 g/dL 13.0-16.5 [facility] Work Phone: Blood lymphocytes/100 leukoc yteson 02-28-2022 Lymphocytes/100 WBC (Bld) 4.2 % 19-41 [facility] Work Phone: Blood manual differential co mment interpretation (narrative result)on 02-28-2022 Manual differential comment Germán (Bld) [Interp] SCANNED [facility] Work Phone: Comment on above: LYMPHOPENIA NOTED Blood monocytes/100 leukocyt eson 02-28-2022 Monocytes/100 WBC (Bld) 10.2 % 0-10 [facility] Work Phone: Blood platelet mean volumeon 02-28-2022 Platelet mean volume (Bld) [Entitic vol] 9.8 fL 6.2-12.0 [facility] Work Phone: Determination of erythrocyte mean corpuscular volume (MCV)on 02-28-2022 MCV (RBC) [Entitic vol] 97.6 fL 80-94 [facility] Work Phone: Hematocrit Auto (Bld) [Volum e fraction]on 02-28-2022 Hematocrit (Bld) [Volume fraction] 44.2 % 40-54 [facility] Work Phone: Laboratory - Chemistry and C hemistry - challengeon 02-28-2022 ALP [Catalytic activity/Vol] 69 U/L 45-117 [facility] Work Phone: ALT [Catalytic activity/Vol] 31 U/L 16-61 [facility] Work Phone: CO2 [Moles/Vol] 25.0 mmol/L 21.0-32.0 [facility] Work Phone: Globulin (S) [Mass/Vol] 3.7 g/dL 2.2-4.2 [facility] Work Phone: Urea nitrogen/Creatinine [Mass ratio] 18.9 mg/mg 10-20 [facility] Work Phone: Laboratory - Hematology and Cell countson 02-28-2022 Erythrocyte distribution width (RBC) [Entitic vol] 46.7 fL 35.1-43.9 [facility] Work Phone: Erythrocyte distribution width (RBC) [Ratio] 13.1 % 11.6-14.6 [facility] Work Phone: Immature granulocytes/100 WBC (Bld) 0.500 % 0.0-0.9 [facility] Work Phone: Comment on above: IG% - Immature Granu locytes (promyelocytes, myelocytes and metamyelocytes) > 1% indicates that a LEFT SHIFT is Present. MCH (RBC) [Entitic mass] 32.7 pg 27.0-32.0 [facility] Work Phone: Nucleated RBC/100 WBC (Bld) [Ratio] 0 % 0-5 [facility] Work Phone: MCHC Auto (RBC) [Mass/Vol]on 02-28-2022 MCHC (RBC) [Mass/Vol] 33.5 g/dL 32-36 [facility] Work Phone: No Panel Informationon 02-28 Estimated GFR (MDRD) Amer 114 mL/min >60 [facility] Work Phone: Comment on above: GFR Calc Estimated GFR (MDRD) Non-Af Amer 94 mL/min >60 [facility] Work Phone: Comment on above: Non- GFR Calc Thyroid Stimulating Hormone (TSH) 0.64 uIU/mL 0.358-3.74 [facility] Work Phone: Vitamin D 25-Hydroxy 21.8 ng/mL [facility] Work Phone: Comment on above: Vitamin D 25(OH) Sta tus Range Deficiency <20 ng/mL (50nmol/L) Insufficiency 20 - 30 ng/mL (50 - 75 nmol/L) Sufficiency 30 - 100 ng/mL (75 - 250 nmol/L) Toxicity >100 ng/mL (>250 nmol/L) Platelets bldon 02-28-2022 Platelets (Bld) [#/Vol] 249 10*3/uL 150-450 [facility] Work Phone: Serum or plasma albumin salbador urement (mass/volume)on 02-28-2022 Albumin [Mass/Vol] 3.9 g/dL 3.2-5.0 [facility] Work Phone: Serum or plasma albumin/glob ulin mass ratioon 02-28-2022 Albumin/Globulin [Mass ratio] 1.1 {ratio} 0.9-2.4 [facility] Work Phone: Serum or plasma calcium salbador urement (mass/volume)on 02-28-2022 Calcium [Mass/Vol] 9.2 mg/dL 8.5-10.1 [facility] Work Phone: Serum or plasma creatinine m easurement (mass/volume)on 02-28-2022 Creatinine [Mass/Vol] 0.84 mg/dL 0.70-1.30 [facility] Work Phone: Comment on above: The validity of the calculated GFR & GFRAA in patients over 70 years has not been determined. Clinical correlation is essential. Serum or plasma urea nitroge n measurement (mass/volume)on 02-28-2022 Urea nitrogen [Mass/Vol] 16 mg/dL 7-18 [facility] Work Phone: Thin prep Papanicolaou smear with manual screeningon 02-28-2022 Thin prep Papanicolaou smear with manual screening 30 U/L 15-37 [facility] Work Phone: Thin prep Papanicolaou smear with manual screening 11 5-15 [facility] Work Phone: Laboratory - Microbiology an d Antimicrobial susceptibilityon 12-16-2021 SARS-CoV-2 (COVID-19) RNA PHILLY+probe Ql (Unsp spec) Not detected Not Detect [facility] Work Phone: Comment on above: Normal Reference Ran ge: Not DetectedMethod:(RT-PCR) real-time reverse transcriptase PCRLuminex RICHY Instrument*The Food and Drug Administration (FDA) has issued an Emergency Use Authorization (EAU) for the RICHY SARS-CoV-2 Assay for the rapid detection of the virus that causes COVID-19. This test has been validated, but the FDAs independent review of this validation is pending.*Negative results do not preclude infection and should not be used as the sole basis for treatment or patient management. Optimum specimen types and timing for peak viral levels during infections caused by SARS-CoV-2 have not been determined. Collection of multiple specimens from the same patient may be necessary to detect the virus. The possibility of a false negative result should be considered if the patient has clinical presentation or has had recent exposure. Absolute lymphocyte counton 08-30-2021 Lymphocytes Auto (Unsp spec) [#/Vol] 0.27 10*3/uL 0.83-4.51 [facility] Work Phone: Basophil percentageon 2021 Basophils/100 WBC (Bld) 0.8 % 0-1 [facility] Work Phone: Bilirubin [Mass/Vol] 0.50 mg/dL 0.20-1.[address] [facility] [facility]: Comment on above: For patients on eltr ombopag therapy, use of Dimension [place] TBIL is not recommended. Chloride [Moles/Vol] 102 mmol/L 98-107 [facility] Work Phone: Eosinophils/100 WBC (Bld) 2.3 % 0-5 [facility] Work Phone: Glucose [Mass/Vol] 79 mg/dL 74-106 [facility] Work Phone: Neutrophils (Bld) [#/Vol] 4.1 10*3/uL 2.0-7.7 [facility] Work Phone: Neutrophils/100 WBC (Bld) 78.6 % 47-70 [facility] Work Phone: Potassium [Moles/Vol] 3.7 mmol/L 3.5-5.1 [facility] Work Phone: Protein [Mass/Vol] 7.5 g/dL 6.4-8.2 [facility] Work Phone: Sodium [Moles/Vol] 136 mmol/L 136-145 [facility] Work Phone: WBC (Bld) [#/Vol] 5.2 10*3/uL 4.4-11.0 [facility] Work Phone: Blood erythrocytes count (nu mber/volume)on 08-30-2021 RBC (Bld) [#/Vol] 4.47 10*6/uL 4.6-6.2 [facility] Work Phone: Blood hemoglobin measurement (mass/volume)on 08-30-2021 Hemoglobin (Bld) [Mass/Vol] 14.4 g/dL 13.0-16.5 [facility] Work Phone: Blood lymphocytes/100 leukoc yteson 08-30-2021 Lymphocytes/100 WBC (Bld) 5.2 % 19-41 [facility] Work Phone: Blood monocytes/100 leukocyt eson 08-30-2021 Monocytes/100 WBC (Bld) 12.7 % 0-10 [facility] Work Phone: Blood platelet adequacy dete ction by light microscopyon 08-30-2021 Platelets LM Ql (Bld) ADEQUATE ADEQ [facility] Work Phone: Blood platelet mean volumeon 08-30-2021 Platelet mean volume (Bld) [Entitic vol] 9.7 fL 6.2-12.0 [facility] Work Phone: Determination of erythrocyte mean corpuscular volume (MCV)on 08-30-2021 MCV (RBC) [Entitic vol] 95.3 fL 80-94 [facility] Work Phone: Hematocrit Auto (Bld) [Volum e fraction]on 08-30-2021 Hematocrit (Bld) [Volume fraction] 42.6 % 40-54 [facility] Work Phone: Laboratory - Chemistry and C hemistry - challengeon 08-30-2021 ALP [Catalytic activity/Vol] 65 U/L 45-117 [facility] Work Phone: ALT [Catalytic activity/Vol] 34 U/L 16-61 [facility] Work Phone: CO2 [Moles/Vol] 26.0 mmol/L 21.0-32.0 [facility] Work Phone: Globulin (S) [Mass/Vol] 3.9 g/dL 2.2-4.2 [facility] Work Phone: Urea nitrogen/Creatinine [Mass ratio] 14.9 mg/mg 10-20 [facility] Work Phone: Laboratory - Hematology and Cell countson 08-30-2021 Erythrocyte distribution width (RBC) [Entitic vol] 44.3 fL 35.1-43.9 [facility] Work Phone: Erythrocyte distribution width (RBC) [Ratio] 12.5 % 11.6-14.6 [facility] Work Phone: Immature granulocytes/100 WBC (Bld) 0.400 % 0.0-0.9 [facility] Work Phone: Comment on above: IG% - Immature Granu locytes (promyelocytes, myelocytes and metamyelocytes) > 1% indicates that a LEFT SHIFT is Present. MCH (RBC) [Entitic mass] 32.2 pg 27.0-32.0 [facility] Work Phone: Nucleated RBC/100 WBC (Bld) [Ratio] 0 % 0-5 [facility] Work Phone: MCHC Auto (RBC) [Mass/Vol]on 08-30-2021 MCHC (RBC) [Mass/Vol] 33.8 g/dL 32-36 [facility] Work Phone: No Panel Informationon 08-30 Estimated GFR (MDRD) Amer 133 mL/min >60 [facility] Work Phone: Comment on above: GFR Calc Estimated GFR (MDRD) Non-Af Amer 110 mL/min >60 [facility] Work Phone: Comment on above: Non- GFR Calc Thyroid Stimulating Hormone (TSH) 0.53 uIU/mL 0.358-3.74 [facility] Work Phone: Vitamin D 25-Hydroxy 32.8 ng/mL [facility] Work Phone: Comment on above: Vitamin D 25(OH) Sta tus Range Deficiency <20 ng/mL (50nmol/L) Insufficiency 20 - 30 ng/mL (50 - 75 nmol/L) Sufficiency 30 - 100 ng/mL (75 - 250 nmol/L) Toxicity >100 ng/mL (>250 nmol/L) Platelets bldon 08-30-2021 Platelets (Bld) [#/Vol] 255 10*3/uL 150-450 [facility] Work Phone: RBC morphologyon 08-30-2021 RBC morphology finding Nom (Bld) NORM C+C NORMAL NORM C&C [facility] Work Phone: Serum or plasma albumin salbador urement (mass/volume)on 08-30-2021 Albumin [Mass/Vol] 3.6 g/dL 3.2-5.0 [facility] Work Phone: Serum or plasma albumin/glob ulin mass ratioon 08-30-2021 Albumin/Globulin [Mass ratio] 0.9 {ratio} 0.9-2.4 [facility] Work Phone: Serum or plasma calcium salbador urement (mass/volume)on 08-30-2021 Calcium [Mass/Vol] 9.3 mg/dL 8.5-10.1 [facility] Work Phone: Serum or plasma creatinine m easurement (mass/volume)on 08-30-2021 Creatinine [Mass/Vol] 0.74 mg/dL 0.70-1.30 [facility] Work Phone: Comment on above: The validity of the calculated GFR & GFRAA in patients over 70 years has not been determined. Clinical correlation is essential. Serum or plasma urea nitroge n measurement (mass/volume)on 08-30-2021 Urea nitrogen [Mass/Vol] 11 mg/dL 7-18 [facility] Work Phone: Thin prep Papanicolaou smear with manual screeningon 08-30-2021 Thin prep Papanicolaou smear with manual screening 34 U/L 15-37 [facility] Work Phone: Thin prep Papanicolaou smear with manual screening 8 5-15 [facility] Work Phone: No Panel Information Influenza Types A,B Direct FA (ROBYN) [facility] Work Phone: RSV Ag EIA RSV Ag Immune stain Ql (Tiss) [facility] Work Phone: Encounters Encounter Date Encounter Type Care Provider Facility Start: 03-20-2024 End: 03-20-2024 ambulatory [facility] Facility:[facility] Start: 09-19-2023 End: 09-19-2023 ambulatory [facility] Facility:[facility] Start: 03-16-2023 End: 03-16-2023 ambulatory [facility] Work Phone: Start: 03-16-2023 End: 03-16-2023 [facility] Start: 09-07-2022 End: 09-07-[facility] Start: 09-07-2022 End: 09-07-2022 [facility] Start: 03-09-2022 End: 03-09-2022 [facility] Start: 03-09-2022 End: 03-09-2022 [facility] Start: 02-28-2022 End: 02-28-2022 [facility]: Start: 02-28-2022 End: 02-28-2022 [facility] Start: 12-16-2021 End: 12-16-2021 [facility]: Start: 12-16-2021 End: 12-16-2021 Patient encounter procedure [facility] Start: 08-30-2021 End: 08-30-2021 [facility] Procedures Date Procedure Procedure Detail Performing Clinician Influenza Types A,B Direct FA (ROBYN) Respiratory syncytial virus antigen assay Payers Date Payer Category Payer [facility] e ([facility] and others) [id number] 2023 Self-pay [id number] 2013 Medicare [id number] [address] [place] [address] [id number] Unknown [id number] Social History Date Type Detail Facility Start: 09-15-2014 End: 09-15-2014 Tobacco smoking status NHIS Unknown if ever smoked [facility] Start: 09-15-2014 None [facility] Start: 09-15-2014 Non-smoker [facility] Start: 1950 Sex Assigned At Male [facility] Evaluation note Note Date & Type Note Facility Evaluation note No assessment information availa ble [facility] Work Phone: Chief Complaint and Reason for Visit Chief Complaint LABWORK Chief Complaint LABWORK VIRAL SYMPTOMS Chief Complaint VIRAL SYMPTOMS DUE ON OR AROUND DATE LISTED PER ORDER Family History No Family History Records Found Relationship Condition Age at Onset Recorded Date/T yesi Unknown Family History?No pertinent history Unkno wn September 15, 2014 9:54am Family History?No pertinent history Unkno wn September 15, 2014 9:54am Relationship Condition Age at Onset Recorded Date/T yesi Unknown Family History?No pertinent history Unkno wn September 15, 2014 8:54am Family History?No pertinent history Unkno wn September 15, 2014 8:54am Advance Directives No Advanced Directives Records Found Advance Directive Response Recorded Date/ Time Advance Directives No September 14 5 8:07pm Living Will No September 14, 2014 8 :07pm Power of Lawn Technician No September 14, 2014 8:07pm Advance Directive Response Recorded Date/ Time Advance Directives No September 14 5 7:07pm Living Will No September 14, 2014 7 :07pm Power of Lawn Technician No September 14, 2014 7:07pm Summary Purpose Additional Source Comments Goals (unrecognized section and content) Goals may be documented in a n alternate sectionGoals may be documented in an alternate sectionGoals may be documented in an alternate sectionGoals may be documented in an alternate sectionGoals may be documented in an alternate sectionGoals may be documented in an alternate section Care Teams (unrecognized sec tion and content) Team Status: Active Member Role Status Dates Dr. Mohinder Camargo MD Family Provider Active Dr. Mohinder Camargo MD Primary Care Provider Active Team Status: Inactive Member Role Status Dates Dr. Mohinder Camargo MD Primary Care Provi nakita, Attending Provider, Referring Provider Active Team Status: Inactive Member Role Status Dates Dr. Mohinder Camargo MD Primary Care Provider, Attending Provider Active (unrecognized sect ion and content) No Status Records Found INFORMATION SOURCE (unrecogn ized section and content) DATE CREATED AUTHOR 04/14/2024 [facility] FOR RECORDS PERTAINING TO PATIENTS WHO ARE OR HAVE BEEN ENROLLED IN A CHEMICAL DEPENDENCY/SUBSTANCEABUSE PROGRAM, SOME INFORMATION MAY BE OMITTED. This clinical summary was aggregated from multiple sources. Caution should be exercised in using it in the provision of clinical care. This summary normalizes information from multiple sources, and as a consequence, information in this document may materially change the coding, format and clinical context of patient data. In addition, data may be omitted in some cases. CLINICAL DECISIONS SHOULD BE BASED ON THE PRIMARY CLINICAL RECORDS. [employer] [facility]. provides no warranty or guarantee of the accuracy or completeness of information in this document.
== END | disposition home or self-care (01) ==
LOC: POLAB3 10:38
PROVIDERS: PCP Family Medicine Geriatric Medicine; Visit Provider Family Medicine Geriatric Medicine
DX: I10 Essential (primary) hypertension (principal); E55.9 Vitamin D deficiency, unspecified
CPT/HCPCS: 36415; 80053; 82306; 84443; 85025

== ENCOUNTER → 2024-10-10 | Outpatient (CLI) | payer MEDICARE, OTHER, SELFPAY | END | disposition home or self-care (01) | LOC: LABSPEC 10-11 07:18 | PROVIDERS: PCP Family Medicine Geriatric Medicine; Referring Provider Surgery Plastic and Reconstructive Surgery; Visit Provider Surgery Plastic and Reconstructive Surgery | DX: C44.42 Squamous cell carcinoma of skin of scalp and neck (principal) | CPT/HCPCS: 88305 ==

== ENCOUNTER 2024-12-10 07:23 | Day surgery (SDC) | payer MEDICARE, OTHER, SELFPAY ==
--- NOTE | 2024-11-26 16:32 | PAT.ANE_ITS ---
Pre-Assessment Diagnosis/Proposed Procedure Planned Operative Procedure(s): EXCISION LEFT SCALP SQUAMOUS CELL CARCINOMA WITH ALLOGRAFT PLACEMENT Anesthesia History Anesthesia History - endoscopy support specialist: Anesthesia History - endoscopy support specialist Hx Hospitalization No 11/26/24 14:49 Any Problems With Anesthesia No 11/26/24 14:49 Cholinesterase deficiency No 11/26/24 14:49 You/Your Family Experience No 11/26/24 14:49 fever (hyperthermia) with Relationship Recent Exposure to Contagious Disease Does patient have nerve No 11/26/24 14:49 stimulator Patient instructed to have device shut off --Does patient have Pacemaker or ICD? When Was Last Pacemaker Check QUESTION #4 FULL TEXT: You/Your Family Experience fever (hyperthermia) with Anesthesia Last Oral Intake Last Oral intake: Last Oral Intake NPO since Meds taken in AM with sips of water? Meds patient instructed to take am of surgery PONV PONV - endoscopy support specialist: PONV - endoscopy support specialist Female No 11/26/24 14:49 HX of Motion Sickness No 11/26/24 14:49 HX of N/V After Surgery No 11/26/24 14:49 Non-Smoker Yes 11/26/24 14:49 Duration of Surgery greater Yes 11/26/24 14:49 than 60 minutes Number of Risk Factors 2 11/26/24 14:49 PONV Score Moderate Risk 11/26/24 14:49 Height & Weight Height & Weight: Anesthesia: Height & Weight Height 6 ft 2 in 10/24/24 13:51 Respiratory Assessment Respiratory Assessment - endoscopy support specialist: Respiratory Tract Infection Hx - endoscopy support specialist Hx Respiratory Tract Infection No 11/26/24 14:49 STOP Sleep Apnea STOP Sleep Apnea - endoscopy support specialist: STOP Sleep Apnea - endoscopy support specialist Hx Hypertension Yes: CONTROLLED WITH MEDS 11/26/24 14:49 Hx Sleep Apnea Yes 11/26/24 14:49 CPAP Yes 11/26/24 14:49 BIPAP No 11/26/24 14:49 Do you snore loudly (louder than talking or can be heard Do you often feel tired/ fatigued/ sleepy during daytime? Has anyone observed you stop breathing during sleep? STOP Results Positive 11/26/24 14:49 QUESTION #5 FULL TEXT : Do you snore loudly (louder than talking or can be heard through closed doors)? 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 Specify any problems Hx of Preganancy in last 3 N/A 11/26/24 14:49 Months Nurse Filling Out Transfusion DSCHRIBER 11/26/24 14:49 & Questions: Date: 11/26/24 11/26/24 14:49 Time: 14:51 11/26/24 14:49 Patient unable to answer at this time (ie. confused, unrespo /Reproduction History /Reproductive History - endoscopy support specialist: /Reproductive Hx- endoscopy support specialist Hx Now No 11/26/24 14:49 Gestational Age (in weeks): EDC: Hx Hx Para Hx Section SAB No 11/26/24 14:49 PFSH Medical History (Updated 11/26/24 @ 14:57 by Hilary Multani) Wears glasses Cancer Alcohol use Arthritis High cholesterol Non-smoker CPAP (continuous positive airway pressure) dependence History of echocardiogram History of stress test Hypertension Hx of sebaceous cyst Home Medications ?Medication ?Instructions ?Recorded ?Last Taken ?Type glucosamine 500 mg-chondroit 400 2 ea PO DAILY 5 Unknown History mg-vit C 2 mg-tomer 0.33 mg capsule (Cosamin DS (with manganese)) multivitamin with folic acid 400 1 tab PO DAILY Unknown History mcg tablet (Thera) pyridoxine (vitamin B6) 50 mg 100 mg PO DAILY 09/15/14 Unknown History tablet terazosin 5 mg capsule 10 mg PO DINNER 09/15/14 Unk nown History epinephrine 0.3 mg/0.3 mL 0.3 mg (0.3 mL) IM UD ##1 Unknown Rx injection, auto-injector hydrochlorothiazide 25 mg tablet 25 mg PO DAILY ##30 0 09/17/14 Unknown Rx amlodipine 10 mg tablet 10 mg PO QDAY 10/10/24 Unkno wn History potassium chloride 20 mEq 20 meq PO BID 10/10/24 Unkno wn History tablet,extended release(part/cryst) pravastatin 40 mg tablet 40 mg PO QDAY 10/10/24 Unkno wn History tadalafil 20 mg tablet 20 mg PO PRN PRN sexual acti vity 10/10/24 Unknown History CPAP - Continuous Positive Airway 11/26/24 Unknown Hi story Pressure([facility] INFORMATIONAL USE ONLY) Allergy/AdvReac Type Severity Reaction Status Date / Time Food Allergies: Uncoded Allergy Swelling Verified 11/26/24 14:45 lisinopril Allergy Angioedema Verified 11/26/24 14:45 Penicillins Allergy Unknown Verified 11/26/24 14:45 Surgical History (Updated 11/26/24 @ 14:57 by Hilary Multani) Hx of colonoscopy Hx of total knee replacement Hx of total knee replacement Hx of tonsillectomy Social History Smoking Status: Never smoker alcohol intake: never substance use type: does not use additional social history: pt denies aspirin and ibuprofen use pt denies vaping, denies edibles, denies marijuana, denies history of blood clots Audit: Pertinent Findings Pertinent Findings EKG Perinent findings: 09/14/2014. Sinus rhythm with PAC. Stress test pertinent findings: 05/14/2019. Patient achieved a METS of 7. No EKG changes with stress. Occasional PACs/PVCs during exercise and recovery. Echo (EF%) pertinent findings: 04/08/2019. EF is 65%. No aortic stenosis noted. Recommendation Anesthesia Recommendation Anesthesia recommendation: OPTIMIZED for anesthesia (Patient is cleared for MAC anesthesia. Consider twelve-lead EKG on day of surgery if general anesthesia is chosen.)
[2024-12-10] VITALS (7 sets, daily range): BP systolic 134–163; BP diastolic 71–77; PULSE 72–89; RESP 14–18; TEMP 37.1; O2SAT 98–99; BMI 28.3
[2024-12-10] MEDS: Lactated Ringers 1,000 ML 15 ML IV (07:50)
--- NOTE | 2024-12-10 07:59 | PCM.PRE.AN2 ---
ASA Classification* ASA Classification ASA Classification: 2 Assessment & Plan Anesthesia* Anesthesia Assessment Anesthesia Assessment: Discussed sedation and/or anesthesia options, risks, benefits, and alternatives with patient/parents/legal guardian/POA. Questions invited. The patient/parents/legal guardian/POA seems to understand and agrees to proceed with anesthesia plan. Reviewed the physical assessment, medical history, allergy history and patient home medications list prior to surgery/procedure/anesthetic and documented any changes. Performed airway and anesthesia risk assessments. Anesthesia Type Anesthesia Type: MAC History Source History Obtained from:: Patient and Chart Anesthesia Focused Assessment* Temperature: 98.8 F Pulse Rate: 89 Blood Pressure: 163/76 Respiratory Rate: 16 Pulse Ox: 99 Oxygen Delivery Method: Room Air Airway Assessment Mouth opens: >3 cm Mallampati Score: III Teeth Condition: Caps/Crowns (Tooth #8 has a cap.) Neck Range of motion (ROM): Limited ROM (Severe Restriction) Labs Anesthesia Preop lab: CBC WBC, (4.4-11.0) 5.6 K/mm3 09/19/24, : RBC, (4.6-6.2) 4.60 M/mm3 09/19/24, :38 Hgb, (13.0-16.5) 15.3 g/dL 09/19/24, : Hct, (40-54) 42.8 % 09/19/24, : Plt Count, (150-450) 229 K/mm3 09/19/24, 10:38 CHEMISTRY Potassium, (3.3-5.1) 3.8 mmol/L 09/19/24, : Sodium, (133-145) 134 mmol/L 09/19/24, 10:38 BUN, (4-19) 12 mg/dL 09/19/24, 10: Creatinine, (0.70-1.20) 0.72 mg/dL 09/19/24, : Glucose, (70-99) 90 mg/dL 09/19/24, : POC Glucose, (70-110) 138 mg/dL H 07/0715, 12:15 TSH, (0.300-4.200) 0.703 uIU/mL 09/19/24, : COAG Pre-Assessment Diagnosis/Proposed Procedure Planned Operative Procedure(s): EXCISION LEFT SCALP SQUAMOUS CELL CARCINOMA WITH ALLOGRAFT PLACEMENT Anesthesia History Anesthesia History - ophthalmic pathologist: Anesthesia History - ophthalmic pathologist Hx Hospitalization No 11/26/24 14:49 Any Problems With Anesthesia No 11/26/24 14:49 Cholinesterase deficiency No 11/26/24 14:49 You/Your Family Experience No 11/26/24 14:49 fever (hyperthermia) with Relationship Recent Exposure to Contagious No 12/10/24 07:43 Disease Does patient have nerve No 11/26/24 14:49 stimulator Patient instructed to have device shut off --Does patient have Pacemaker No 12/10/24 07:43 or ICD? When Was Last Pacemaker Check QUESTION #4 FULL TEXT: You/Your Family Experience fever (hyperthermia) with Anesthesia Last Oral Intake Last Oral intake: Last Oral Intake NPO since 06:30 12/10/24 07:43 Meds taken in AM with sips of Yes 12/10/24 07:43 water? Meds patient instructed to amlodipine 12/10/24 07:43 take am of surgery Any additional information?: Yes Meds taken in AM with sips of water?: Yes PONV PONV - ophthalmic pathologist: PONV - ophthalmic pathologist Female No 11/26/24 14:49 HX of Motion Sickness No 11/26/24 14:49 HX of N/V After Surgery No 11/26/24 14:49 Non-Smoker Yes 11/26/24 14:49 Duration of Surgery greater Yes 11/26/24 14:49 than 60 minutes Number of Risk Factors 2 11/26/24 14:49 PONV Score Moderate Risk 11/26/24 14:49 Height & Weight Height & Weight: Anesthesia: Height & Weight Height 6 ft 2 in 12/10/24 07:43 Weight: 100.2 kg 12/10/24 07:43 Body Mass Index (BMI) 28.3 12/10/24 07:43 Respiratory Assessment Respiratory Assessment - ophthalmic pathologist: Respiratory Tract Infection Hx - ophthalmic pathologist Hx Respiratory Tract Infection No 11/26/24 14:49 STOP Sleep Apnea STOP Sleep Apnea - ophthalmic pathologist: STOP Sleep Apnea - ophthalmic pathologist Hx Hypertension Yes: CONTROLLED WITH MEDS 11/26/24 14:49 Hx Sleep Apnea Yes 11/26/24 14:49 CPAP Yes 11/26/24 14:49 BIPAP No 11/26/24 14:49 Do you snore loudly (louder than talking or can be heard Do you often feel tired/ fatigued/ sleepy during daytime? Has anyone observed you stop breathing during sleep? STOP Results Positive 11/26/24 14:49 QUESTION #5 FULL TEXT : Do you snore loudly (louder than talking or can be heard through closed doors)? 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 Specify any problems Hx of Preganancy in last 3 N/A 11/26/24 14:49 Months Nurse Filling Out Transfusion DSCHRIBER 11/26/24 14:49 & Questions: Date: 11/26/24 11/26/24 14:49 Time: 14:51 11/26/24 14:49 Patient unable to answer at this time (ie. confused, unrespo /Reproduction History /Reproductive History - ophthalmic pathologist: /Reproductive Hx- ophthalmic pathologist Hx Now No 11/26/24 14:49 Gestational Age (in weeks): EDC: Hx Hx Para Hx Section SAB No 11/26/24 14:49 Active Medications Active Medications: Current Medications Generic Name Dose Route Start Last Admin Trade Name Freq PRN Reason Stop Dose Admin Clindamycin Phosphate 900 mg in 50 mls @ 75 mls/hr 12/10/24 08:45 Cleocin IV 12/10/24 09:24 INTRAOP ONE Lactated Ringer's 1,000 mls @ 15 mls/hr 12/10/24 07:30 12/10/24 07:50 IV 15 mls/hr .Q48H TK Administration PFSH Medical History Wears glasses Cancer Alcohol use Arthritis High cholesterol Non-smoker CPAP (continuous positive airway pressure) dependence History of echocardiogram History of stress test Hypertension Hx of sebaceous cyst Home Medications ?Medication ?Instructions ?Recorded ?Last Taken ?Type glucosamine 500 mg-chondroit 400 2 ea PO DAILY 09/15/14 Unknown History mg-vit C 2 mg-tomer 0.33 mg capsule (Cosamin DS (with manganese)) multivitamin with folic acid 400 1 tab PO DAILY 09/15/14 Unknown History mcg tablet (Thera) pyridoxine (vitamin B6) 50 mg 100 mg PO DAILY 09/15/14 Unknown History tablet terazosin 5 mg capsule 10 mg PO DINNER 09/15/14 Unknown History epinephrine 0.3 mg/0.3 mL 0.3 mg (0.3 mL) IM UD ##1 09/17/14 Unknown Rx injection, auto-injector hydrochlorothiazide 25 mg tablet 25 mg PO DAILY ##30 09/17/14 Unknown Rx amlodipine 10 mg tablet 10 mg PO QDAY 10/10/24 12/10/24 History potassium chloride 20 mEq 20 meq PO BID 10/10/24 Unknown History tablet,extended release(part/cryst) pravastatin 40 mg tablet 40 mg PO QDAY 10/10/24 Unknown History tadalafil 20 mg tablet 20 mg PO PRN PRN sexual activity 10/10/24 Unknown History CPAP - Continuous Positive Airway 11/26/24 Unknown History Pressure([facility] INFORMATIONAL USE ONLY) Allergy/AdvReac Type Severity Reaction Status Date / Time Food Allergies: Uncoded Allergy Swelling Verified 12/10/24 07:42 lisinopril Allergy Angioedema Verified 12/10/24 07:42 Penicillins Allergy Unknown Verified 12/10/24 07:42 Surgical History Hx of colonoscopy Hx of total knee replacement Hx of total knee replacement Hx of tonsillectomy Social History Smoking Status: Never smoker alcohol intake: never substance use type: does not use additional social history: pt denies aspirin and ibuprofen use pt denies vaping, denies edibles, denies marijuana, denies history of blood clots Review of Systems (Anesthesia) ROS Narrative System reviewed and no additional complaints, except as documented.
--- NOTE | 2024-12-10 08:25 | PCM.HP.STD ---
HPI - General HPI Narrative AVELINA TREJO, is a 74 M who presents with a scalp lesion presenting today excision for squamous cell carcinoma. The lesion has been present for several months and was initially treated with Neosporin and hydrogen peroxide, which led to some reduction in size, but it has since remained unchanged. The lesion is located on the left central scalp and measures approximately 1.5 x 1.5 cm. He underwent biopsy with Dr. Baker on 10/10. Dr. Baker discussed surgical excision with 6mm margins for SCC. Risks, benefits were discussed and informed consent was obtained. Spec# :[id number] Spec Date: 10/10/[address]: Dr. Jigar Baker MD Spec Type: LES OPERATION: Biopsy scalp lesion PRE-OP DIAGNOSIS: Scalp lesion TISSUE SUBMITTED: A- Scalp lesion MICROSCOPIC DIAGNOSIS A. Scalp, ?lesion?, biopsy: - Invasive squamous cell carcinoma involving the deep and peripheral surgical margins The patient has no history of similar lesions and reports no lumps or bumps on the neck. He uses a CPAP machine at night, which he believes may have initially irritated the area. The patient has a history of an acute anaphylactic reaction to lisinopril, which required intubation for three days. He has been off lisinopril since the reaction. No changes in his medical status, no changes in medications. He denies recent URI, fever, chills, nausea, vomiting, diarrhea. [facility] Medical History (Updated 12/10/24 @ 08:37 by BRADY Tobar) Squamous cell carcinoma of scalp Wears glasses Cancer Alcohol use Arthritis High cholesterol Non-smoker CPAP (continuous positive airway pressure) dependence History of echocardiogram History of stress test Hypertension Hx of sebaceous cyst Home Medications ?Medication ?Instructions ?Recorded ?Last Taken ?Type glucosamine 500 mg-chondroit 400 2 ea PO DAILY 09/15/14 Unknown History mg-vit C 2 mg-tomer 0.33 mg capsule (Cosamin DS (with manganese)) multivitamin with folic acid 400 1 tab PO DAILY 09/15/14 Unknown History mcg tablet (Thera) pyridoxine (vitamin B6) 50 mg 100 mg PO DAILY 09/15/14 Unknown History tablet terazosin 5 mg capsule 10 mg PO DINNER 09/15/14 Unknown History epinephrine 0.3 mg/0.3 mL 0.3 mg (0.3 mL) IM UD ##1 09/17/14 Unknown Rx injection, auto-injector hydrochlorothiazide 25 mg tablet 25 mg PO DAILY ##30 09/17/14 Unknown Rx amlodipine 10 mg tablet 10 mg PO QDAY 10/10/24 12/10/24 History potassium chloride 20 mEq 20 meq PO BID 10/10/24 Unknown History tablet,extended release(part/cryst) pravastatin 40 mg tablet 40 mg PO QDAY 10/10/24 Unknown History tadalafil 20 mg tablet 20 mg PO PRN PRN sexual activity 10/10/24 Unknown History CPAP - Continuous Positive Airway 11/26/24 Unknown History Pressure([facility] INFORMATIONAL USE ONLY) Allergy/AdvReac Type Severity Reaction Status Date / Time Food Allergies: Uncoded Allergy Swelling Verified 12/10/24 07:42 lisinopril Allergy Angioedema Verified 12/10/24 07:42 Penicillins Allergy Unknown Verified 12/10/24 07:42 Surgical History Hx of colonoscopy Hx of total knee replacement Hx of total knee replacement Hx of tonsillectomy Social History Smoking Status: Never smoker alcohol intake: never substance use type: does not use additional social history: pt denies aspirin and ibuprofen use pt denies vaping, denies edibles, denies marijuana, denies history of blood clots ROS ROS Narrative General: Denies fever, chills HEENT: Denies headaches, vision changes, sore throat Cardio: Denies chest pain, leg edema Pulmonary: Denies shortness of pain, cough, wheezing GI: Denies nausea, vomiting, diarrhea Vital Signs Vital Signs Vital Signs: 12/10/24 07:43 12/10/24 07:43 12/10/24 08:06 Temperature 98.8 F 98.8 F Temperature Source Temporal Pulse Rate 89 89 Respiratory Rate 16 16 Respiratory Pattern Normal Blood Pressure 163/76 H 163/76 H Blood Pressure Mean 105 Blood Pressure Source Monitor Blood Pressure Position Semi-Fowlers Blood Pressure Location Left Arm Pulse Ox 99 99 Oxygen Delivery Method Room Air Room Air Weight Weight: 220 lb 14.451 oz Body Mass Index (BMI) 28.3 Physical Exam Narrative Seen with Dr. Baker with in room Afebrile/hypertensive this morning. In no acute distress Scalp lesion with pink skin changes outside of margin likely actinic keratosis or capillary vessel Abdomen is not distended In no respiratory distress, speaks in full sentences without effort Assessment & Plan Assessment/Plan (1) Neoplasm of uncertain behavior of skin: (2) Squamous cell carcinoma of scalp: PLAN: Plan Presents today for surgical excision with 6mm margins Perioperative antibiotics Will make sure he has dermatology referral for general dermatological maintenance with Dr. Chang or Benny Killian Close postop follow up
--- NOTE | 2024-12-10 08:45 | LES_PTH ---
PATIENT: AVELINA TREJO LOC: [facility] [place] U#:[id number] AGE/SX: 74/M ROOM: RE12/10/[address]: Dr. Jigar Baker MD : [id number] BED: DIS: 12/10/2024 SPEC #: [id number] RECD: 12/10/24 11:07 STATUS: TIKI REBlane #: [id number] ELKE: 12/10/24 08:[address]: Jigar Baker DEPT: SURGICAL PATHOLOGY RECD BY: Pravin Marcum ENTERED: 12/10/24 13:09 SP TYPE: Lesion OTHR DR: Dr. Mohinder Camargo MD Tissues: A - Skin of scalp, NOS Procedures: Surgery Specimen Level IV HEADER OPERATION: Excision left scalp squamous cell carcinoma with allograft PRE-OP DIAGNOSIS: Neoplasm of uncertain behavior of skin, squamous cell carcinoma of scalp TISSUE SUBMITTED: A- Scalp cell carcinoma of scalp * 1 stitch = 12o'clock anterior, 2 stitches = 3o'clock, 3 stitches = 6o'clock posterior* MICROSCOPIC DIAGNOSIS A. Left scalp, squamous cell carcinoma, excision: * Invasive squamous cell carcinoma, moderately differentiated, surgical margins free. * Tumor involves the subcutis with associated fibrosis, 0.4 cm thick. * No lymphovascular or perineural invasion observed. MICROSCOPIC DESCRIPTION Slides are reviewed. GROSS DESCRIPTION A. Received in formalin labeled with the patient's name and date of . Designated as squamous cell carcinoma of scalp is a 3.3 x 3.3 cm rizzo, ovoid portion of skin excised to a maximum depth of 0.6 cm. The deep aspect has attached, shaggy, pink-red semimembranous tissue. The specimen is oriented as follows:Single suture: designated as 12:00 (anterior)Double suture: designated as 3:00Triple suture: designated as 6:00 (posterior) There is a 1.5 x 1.2 cm slightly raised, ulcerative lesion located the following distances from the margins: 12:00: 1.0 cm 3:00: 1.0 cm 6:00: 1.0 cm9:00: 0.9 cmDeep: 0.3 cm Ink hamm: 12:00 to 3:00: Green3:00 to 6:00: Yellow6:00 to 9:00: Orange9:00 to 12:00: BlueDeep: Black The specimen is serially sectioned from 12:00 to 3:00 revealing that the mass extends approximately 0.3 cm into the underlying soft tissue. Entirely submitted, sequentially from 12:00 to 3:00 in 5 cassettes. CO 12/10/2024 CPT:54373
[2024-12-10] MEDS: Lidocaine 1% (5 ml sdv) 5 ML Vial 3 ML IV (08:56)
[2024-12-10] MEDS: PROPOFOL 28.01 MG IV (08:57)
[2024-12-10] MEDS: Midazolam 2 MG/2 ML Syringe IV (08:59)
--- NOTE | 2024-12-10 09:07 | PCM.OPRPT ---
Operative Report (Standard) Operative Information Date of Procedure: 12/10/24 Pre-Operative Diagnosis: Left scalp squamous cell carcinoma (SCC) Post-Operative Diagnosis: Left scalp SSC Surgery/Procedure Performed: 1) Excision of 2.5 x 2.9 cm squamous cell carcinoma (6 mm circumferential margins) 2) Placement of dermal substitute (Cadaver Allograft, Thera Skin) 2.5 x 2.9 cm fingerprinter: Yes Outreach And Education Social Worker: Hernando Ortiz Tasks completed by assistant activities director: Closing and Removing tissue Type of Anesthesia: Local MAC (15 cc of a 50-50 mixture of 1% lidocaine with 1-200,000 epinephrine and quarter percent Marcaine with 1-200,000 epinephrine) RN Documented Start/Stop Times: Operation Date: 12/10/24 08:45 Case Time Into Pre-Op 12/10/24 07:26 Out of Pre-Op 12/10/24 08:47 Anesthesia Start 12/10/24 08:51 Into Room 12/10/24 08:51 Procedure Start 12/10/24 09:26 Procedure Start Time: 09:26 Procedure Stop Time: 09:55 Select all DRAINS/GRAFTS/IMPLANTS that apply: Tissue (Cadaver Allograft) Tissue details: Thera Skin over a bolster Estimated Blood Loss: 25 cc Specimen collected: Yes Description of specimen(s) removed: Squamous cell carcinoma excision from the scalp, marked 1 stitch 12:00 (anterior), 2 stitches 3:00, 3 stitches 6:00 Description of surgery: Indications: Beny Casper is a delightful 74-year-old male with a left scalp squamous cell carcinoma that I biopsied in clinic. He presents today for wide local excision. He understands the risks, benefits, and alternatives to procedure, as well as to delay reconstruction with a temporary dressing (cadaver skin) until permanent margins are obtained. Procedure details: Patient was correctly identified in preoperative holding and taken back to the operating room where he was administered sedation and 15 cc of a 50-50 mixture as noted above. He was given time to take effect and he was prepped and draped in sterile fashion. Proper timeout was performed. Marking 6 mm margins around the squama cell carcinoma, a 15 blade scalpel was used to excise the lesion in a [place] full-thickness down to the subgaleal plane above the paracranium. The total excision was 2.5 by 2.9 centimeters. The lesion was marked with a 2-0 silk stitch with anterior stitch being 12:00 with 1 stitch, 3:00 being 2 stitches, and 6:00 being 3 stitches (6:00 was posterior). Hemostasis was obtained with Bovie electrocautery. A 2.5 by 2.9 cm TheraSkin dressing (cadaver skin) was sutured into place over the wound bed and tied over a bolster with 3-0 Vicryl pop-off sutures. ABD and tape were applied. Patient tolerated the procedure well. Postoperative plan: Plan to keep the bolster until permanent margins are obtained and then we will perform a split-thickness skin graft. Patient happy with the plan. Surgical Findings: No signs of invasion underneath the [place]a Complications Complications: No
[2024-12-10] MEDS: Lidocaine 1% /Epi 1:100 (20ml) 20 ML Vial (09:25)
[2024-12-10] MEDS: Bupiv/Epi 0.25% 30 ML Vial (09:25)
[2024-12-10] MEDS: fentaNYL 100 MCG/2 ML Ampul IV (09:43)
--- NOTE | 2024-12-10 09:45 | PCM.POST.ANE ---
Anesthesia: Postop Eval I Current Vital Signs Temperature: 98.8 F Pulse Rate: 72 Blood Pressure: 134/72 Respiratory Rate: 14 Pulse Ox: 98 Oxygen Delivery Method: Room Air Assessment Airway patent: Yes Spontaneous unlabored respirations: Yes nausea: No Vomiting: No Anesthesia Complication: No Fluid Hydration Crystalloid volume administer (ml): 800 Total IV fluid infused: 800 Progress Note Anesthesia document: Postop Eval 1 completed: Yes
--- NOTE | 2024-12-10 11:50 | POSTOPAN2_ITS ---
Anesthesia Postop Eval I Sum Postop Eval Completion status Anesthesia document: Postop Eval 1 completed: Yes Anesthesia Postop Eval I Summary Anesthesia Postop Eval I Summary: Anesthesia Postop Eval I: Assessment Summary Airway patent Yes 12/10/24 09:47 STEAM CONDITIONER FILLING.HBARR Spontaneous unlabored Yes 12/10/24 09:47 STEAM CONDITIONER FILLING.HBARR respirations Mental status nausea No 12/10/24 09:47 STEAM CONDITIONER FILLING.HBARR Vomiting No 12/10/24 09:47 STEAM CONDITIONER FILLING.HBARR Anesthesia Postop Eval I: Fluid Summary Crystalloid volume administer 800 12/10/24 09:47 STEAM CONDITIONER FILLING.HBARR (ml) Colloids volume administered ( ml) Blood Product volume administered (ml) Total IV fluid infused 800 12/10/24 09:47 STEAM CONDITIONER FILLING.HBARR Anesthesia Postop Eval I: Summary Notes Anesthesia Complication No 12/10/24 09:47 STEAM CONDITIONER FILLING.HBARR Anesthesia Complication Comment: Post-operative progress note Anesthesia: Postop Eval II Evaluation Mental status: Awake and Calm Pain Level: 1 nausea: No Vomiting: No Complications Anesthesia Complication: No
--- NOTE | 2024-12-10 11:50 | PCM.POSTANE2 ---
Anesthesia Postop Eval I Sum Postop Eval Completion status Anesthesia document: Postop Eval 1 completed: Yes Anesthesia Postop Eval I Summary Anesthesia Postop Eval I Summary: Anesthesia Postop Eval I: Assessment Summary Airway patent Yes 12/10/24 09:47 INTELLIGENCE GROUP SUPERVISOR.[email or web address] Spontaneous unlabored Yes 12/10/24 09:47 INTELLIGENCE GROUP SUPERVISOR.HBARR respirations Mental status nausea No 12/10/24 09:47 INTELLIGENCE GROUP SUPERVISOR.HBARR Vomiting No 12/10/24 09:47 INTELLIGENCE GROUP SUPERVISOR.HBARR Anesthesia Postop Eval I: Fluid Summary Crystalloid volume administer 800 12/10/24 09:47 INTELLIGENCE GROUP SUPERVISOR.HBARR (ml) Colloids volume administered ( ml) Blood Product volume administered (ml) Total IV fluid infused 800 12/10/24 09:47 INTELLIGENCE GROUP SUPERVISOR.HBARR Anesthesia Postop Eval I: Summary Notes Anesthesia Complication No 12/10/24 09:47 INTELLIGENCE GROUP SUPERVISOR.HBARR Anesthesia Complication Comment: Post-operative progress note Anesthesia: Postop Eval II Evaluation Mental status: Awake and Calm Pain Level: 1 nausea: No Vomiting: No Complications Anesthesia Complication: No
--- NOTE | 2024-12-10 16:28 | PCM.PN.SRG ---
Subjective Subjective Patient here in clinic today because of some oozing from the bolster There is saline with a pink tinge that appears to have been draining onto the ABD No active bleeding on my exam today Bolster in place with the sutures he was not actively bleeding today in clinic Lidocaine with epinephrine injected around the incision I placed an ABD with a head wrap Plan to remove ABD and head wrap tomorrow Patient happy with the plan and I gave his my cell phone in case they are having any issues Objective Data Objective Data Vital Signs: Vital Signs Temp Pulse Resp BP Pulse Ox O2 Del Method 98.7 F 73 18 141/76 H 98 Room Air 12/10/24 10:16 12/10/24 10:16 12/10/24 10:16 12/10/24 10:16 12/10/24 10:16 12/10/24 10:16 Oxygen Delivery Method Room Air Weight: 220 lb 14.451 oz Body Mass Index (BMI) 28.3 Intake & Output: Intake and Output for Last 24 Hours 12/08/24 12/09/24 12/10/24 23:59 23:59 23:59 Output Total 5 / Balance -5 / -5
== END 2024-12-10 10:51 | disposition home or self-care (01) ==
LOC: SDC 07:25 → AC 07:26
PROVIDERS: PCP Family Medicine Geriatric Medicine; Referring Provider Surgery Plastic and Reconstructive Surgery; Visit Provider Surgery Plastic and Reconstructive Surgery
PROC: (CPT 11623; principal; 2024-12-10 08:35)
DX: C44.42 Squamous cell carcinoma of skin of scalp and neck (principal); E78.00 Pure hypercholesterolemia, unspecified; I10 Essential (primary) hypertension; Z79.899 Other long term (current) drug therapy
CPT/HCPCS: 11623; 15275; 00300; 88305; Q4121; J2405

== ENCOUNTER 2024-12-13 10:31 | Day surgery (SDC) | payer MEDICARE, OTHER, SELFPAY ==
--- NOTE | 2024-12-12 14:01 | PAT.ANESEVAL ---
Pre-Assessment Diagnosis/Proposed Procedure Planned Operative Procedure(s): SPLIT THICKNESS SKIN GRAFT TO SCALP Anesthesia History Anesthesia History - talent associate: Anesthesia History - talent associate Hx Hospitalization No 12/12/24 10:46 Any Problems With Anesthesia No 12/12/24 10:46 Cholinesterase deficiency No 12/12/24 10:46 You/Your Family Experience No 12/12/24 10:46 fever (hyperthermia) with Relationship Recent Exposure to Contagious No 12/10/24 07:43 Disease Does patient have nerve No 12/12/24 10:46 stimulator Patient instructed to have device shut off --Does patient have Pacemaker or ICD? When Was Last Pacemaker Check QUESTION #4 FULL TEXT: You/Your Family Experience fever (hyperthermia) with Anesthesia Last Oral Intake Last Oral intake: Last Oral Intake NPO since Meds taken in AM with sips of water? Meds patient instructed to take am of surgery PONV PONV - talent associate: PONV - talent associate Female No 12/12/24 10:46 HX of Motion Sickness No 12/12/24 10:46 HX of N/V After Surgery No 12/12/24 10:46 Non-Smoker Yes 12/12/24 10:46 Duration of Surgery greater No 12/12/24 10:46 than 60 minutes Number of Risk Factors 1 12/12/24 10:46 PONV Score Low Risk 12/12/24 10:46 Height & Weight Height & Weight: Anesthesia: Height & Weight Height 6 ft 2 in 12/10/24 07:43 Respiratory Assessment Respiratory Assessment - talent associate: Respiratory Tract Infection Hx - talent associate Hx Respiratory Tract Infection No 12/12/24 10:46 STOP Sleep Apnea STOP Sleep Apnea - talent associate: STOP Sleep Apnea - talent associate Hx Hypertension Yes: CONTROLLED WITH MEDS 12/12/24 10:46 Hx Sleep Apnea Yes 12/12/24 10:46 CPAP Yes 12/12/24 10:46 BIPAP No 12/12/24 10:46 Do you snore loudly (louder than talking or can be heard Do you often feel tired/ fatigued/ sleepy during daytime? Has anyone observed you stop breathing during sleep? STOP Results Positive 12/12/24 10:46 QUESTION #5 FULL TEXT : Do you snore loudly (louder than talking or can be heard through closed doors)? 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 Specify any problems Hx of Preganancy in last 3 N/A 12/12/24 10:46 Months Nurse Filling Out Transfusion [email or web address] 12/12/24 10:46 & Questions: Date: 12/12/24 12/12/24 10:46 Time: 10:47 12/12/24 10:46 Patient unable to answer at this time (ie. confused, unrespo /Reproduction History /Reproductive History - talent associate: /Reproductive Hx- talent associate Hx Now Gestational Age (in weeks): EDC: Hx Hx Para Hx Section SAB No 12/12/24 10:46 Active Medications Active Medications: Current Medications Generic Name Dose Route Start Last Admin Trade Name Freq PRN Reason Stop Dose Admin Clindamycin Phosphate 900 mg in 50 mls @ 75 mls/hr 12/13/24 07:00 Cleocin IV 12/13/24 07:39 INTRAOP ONE [facility] Medical History (Updated 12/12/24 @ 10:57 by Bernardino Jaimes) Squamous cell carcinoma of scalp Wears glasses Cancer Alcohol use Arthritis High cholesterol Non-smoker CPAP (continuous positive airway pressure) dependence History of echocardiogram History of stress test Hypertension Hx of sebaceous cyst Home Medications ?Medication ?Instructions ?Recorded ?Last Taken ?Type glucosamine 500 mg-chondroit 400 2 ea PO DAILY 09/15/14 Unknown History mg-vit C 2 mg-tomer 0.33 mg capsule (Cosamin DS (with manganese)) multivitamin with folic acid 400 1 tab PO DAILY 09/15/14 Unknown History mcg tablet (Thera) pyridoxine (vitamin B6) 50 mg 100 mg PO DAILY 09/15/14 Unknown History tablet terazosin 5 mg capsule 10 mg PO DINNER 09/15/14 Unknown History epinephrine 0.3 mg/0.3 mL 0.3 mg (0.3 mL) IM UD #1 syringe 09/17/14 Unknown Rx injection, auto-injector hydrochlorothiazide 25 mg tablet 25 mg PO DAILY #30 TABLETS 09/17/14 Unknown Rx amlodipine 10 mg tablet 10 mg PO QDAY 10/10/24 12/10/24 History potassium chloride 20 mEq 20 meq PO BID 10/10/24 Unknown History tablet,extended release(part/cryst) pravastatin 40 mg tablet 40 mg PO QDAY 10/10/24 Unknown History tadalafil 20 mg tablet 20 mg PO PRN PRN sexual activity 10/10/24 Unknown History CPAP - Continuous Positive Airway 11/26/24 Unknown History Pressure([facility] INFORMATIONAL USE ONLY) oxycodone 5 mg tablet 5 mg PO BID PRN pain 5 days #10 12/10/24 Unknown Rx tabs Allergy/AdvReac Type Severity Reaction Status Date / Time Food Allergies: Uncoded Allergy Swelling Verified 12/12/24 10:43 lisinopril Allergy Angioedema Verified 12/12/24 10:43 Penicillins Allergy Unknown Verified 12/12/24 10:43 Surgical History Hx of colonoscopy Hx of total knee replacement Hx of total knee replacement Hx of tonsillectomy Social History Smoking Status: Never smoker alcohol intake: never substance use type: does not use additional social history: pt denies aspirin and ibuprofen use pt denies vaping, denies edibles, denies marijuana, denies history of blood clots Audit: Pertinent Findings Pertinent Findings EKG Perinent findings: 09/14/2014. Sinus rhythm with PACs. Stress test pertinent findings: May 14, 2019. Patient achieved a capacity of 7 METS. No obvious EKG changes at peak exercise. Occasional PACs/PVCs during exercise and recovery. Echo (EF%) pertinent findings: 04/08/2019. EF is 65%. No aortic stenosis noted. Recommendation Anesthesia Recommendation Anesthesia recommendation: OPTIMIZED for anesthesia (Last EKG is from 2014. Consider repeat EKG to establish a baseline on day of surgery.)
[2024-12-13] VITALS (8 sets, daily range): BP systolic 119–148; BP diastolic 56–74; PULSE 68–96; RESP 16–20; TEMP 36.4–37.2; O2SAT 97–99; BMI 28.0
--- NOTE | 2024-12-13 10:41 | PRE.ANES_ITS ---
ASA Classification* ASA Classification ASA Classification: 2 Assessment & Plan Anesthesia* Anesthesia Assessment Anesthesia Assessment: Discussed sedation and/or anesthesia options, risks, benefits, and alternatives with patient/parents/legal guardian/POA. Questions invited. The patient/parents/legal guardian/POA seems to understand and agrees to proceed with anesthesia plan. Reviewed the physical assessment, medical history, allergy history and patient home medications list prior to surgery/procedure/anesthetic and documented any changes. Performed airway and anesthesia risk assessments. Anesthesia Type Anesthesia Type: MAC Anesthesia Focused Assessment* Airway Assessment Mouth opens: >3 cm Mallampati Score: II Labs Anesthesia Preop lab: CBC WBC, (4.4-11.0) 5.6 K/mm3 09/19/24, 10: RBC, (4.6-6.2) 4.60 M/mm3 09/19/24, 10: Hgb, (13.0-16.5) 15.3 g/dL 09/19/24, : Hct, (40-54) 42.8 % 09/19/24, : Plt Count, (150-450) 229 K/mm3 09/19/24, 10:38 CHEMISTRY Potassium, (3.3-5.1) 3.8 mmol/L 09/19/24, 10:38 Sodium, (133-145) 134 mmol/L 09/19/24, 10:38 BUN, (4-19) 12 mg/dL 09/19/24, 10:38 Creatinine, (0.70-1.20) 0.72 mg/dL 09/19/24, 10: Glucose, (70-99) 90 mg/dL 09/19/24, 10:38 POC Glucose, (70-110) 138 mg/dL H 09/16/14, 12:15 TSH, (0.300-4.200) 0.703 uIU/mL 09/19/24, 10:38 COAG Pre-Assessment Diagnosis/Proposed Procedure Planned Operative Procedure(s): SPLIT THICKNESS SKIN GRAFT TO SCALP Anesthesia History Anesthesia History - blocking machine operator: Anesthesia History - blocking machine operator Hx Hospitalization No 12/12/24 10:46 Any Problems With Anesthesia No 12/12/24 10:46 Cholinesterase deficiency No 12/12/24 10:46 You/Your Family Experience No 12/12/24 10:46 fever (hyperthermia) with Relationship Recent Exposure to Contagious No 12/10/24 07:43 Disease Does patient have nerve No 12/12/24 10:46 stimulator Patient instructed to have device shut off --Does patient have Pacemaker or ICD? When Was Last Pacemaker Check QUESTION #4 FULL TEXT: You/Your Family Experience fever (hyperthermia) with Anesthesia Last Oral Intake Last Oral intake: Last Oral Intake NPO since Meds taken in AM with sips of water? Meds patient instructed to take am of surgery PONV PONV - blocking machine operator: PONV - blocking machine operator Female No 12/12/24 10:46 HX of Motion Sickness No 12/12/24 10:46 HX of N/V After Surgery No 12/12/24 10:46 Non-Smoker Yes 12/12/24 10:46 Duration of Surgery greater No 12/12/24 10:46 than 60 minutes Number of Risk Factors 1 12/12/24 10:46 PONV Score Low Risk 12/12/24 10:46 Height & Weight Height & Weight: Anesthesia: Height & Weight Height 6 ft 2 in 12/10/24 07:43 Respiratory Assessment Respiratory Assessment - blocking machine operator: Respiratory Tract Infection Hx - blocking machine operator Hx Respiratory Tract Infection No 12/12/24 10:46 STOP Sleep Apnea STOP Sleep Apnea - blocking machine operator: STOP Sleep Apnea - blocking machine operator Hx Hypertension Yes: CONTROLLED WITH MEDS 12/12/24 10:46 Hx Sleep Apnea Yes 12/12/24 10:46 CPAP Yes 12/12/24 10:46 BIPAP No 12/12/24 10:46 Do you snore loudly (louder than talking or can be heard Do you often feel tired/ fatigued/ sleepy during daytime? Has anyone observed you stop breathing during sleep? STOP Results Positive 12/12/24 10:46 QUESTION #5 FULL TEXT : Do you snore loudly (louder than talking or can be heard through closed doors)? Tobacco Use History Tobacco Use History - blocking machine operator: Tobacco Use History - blocking machine operator Tobacco Use Smoking Status Never smoker 12/12/24 10:46 Hx Tobacco Use No 12/12/24 10:46 Years Smoking Packs Smoked per Day Smoking Cessation Date was within the last 15 years Hx Smoking Cessation Date Hx Smoking Cessation Counseling Hematologic Medial History Hematologic Hx - blocking machine operator: Hematologic Medical Hx - sleeve ironer Hx of Blood Transfusion No 12/12/24 10:46 Hx of Transfusion in last 3 No 12/12/24 10:46 Months Date of Last Transfusion (if within last 3 months) Ever experience any problems No 12/12/24 10:46 with transfusion(s)? Specify any problems Hx of Preganancy in last 3 N/A 12/12/24 10:46 Months Nurse Filling Out Transfusion [email or web address] 12/12/24 10:46 & Questions: Date: 12/12/24 12/12/24 10:46 Time: 10:47 12/12/24 10:46 Patient unable to answer at this time (ie. confused, unrespo /Reproduction History /Reproductive History - blocking machine operator: /Reproductive Hx- blocking machine operator Hx Now Gestational Age (in weeks): EDC: Hx Hx Para Hx Section SAB No 12/12/24 10:46 Active Medications Active Medications: Current Medications Generic Name Dose Route Start Last Admin Trade Name Freq PRN Reason Stop Dose Admin Lactated Ringer's 1,000 mls @ 15 mls/hr 12/13/24 10:45 IV .Q48H TK PFSH Medical History Squamous cell carcinoma of scalp Wears glasses Cancer Alcohol use Arthritis High cholesterol Non-smoker CPAP (continuous positive airway pressure) dependence History of echocardiogram History of stress test Hypertension Hx of sebaceous cyst Home Medications ?Medication ?Instructions ?Recorded ?Last Taken ?Type glucosamine 500 mg-chondroit 400 2 ea PO DAILY 5 Unknown History mg-vit C 2 mg-tomer 0.33 mg capsule (Cosamin DS (with manganese)) multivitamin with folic acid 400 1 tab PO DAILY Unknown History mcg tablet (Thera) pyridoxine (vitamin B6) 50 mg 100 mg PO DAILY 09/15/14 Unknown History tablet terazosin 5 mg capsule 10 mg PO DINNER 09/15/14 Unk nown History epinephrine 0.3 mg/0.3 mL 0.3 mg (0.3 mL) IM UD #1 syr abbe 09/17/14 Unknown Rx injection, auto-injector hydrochlorothiazide 25 mg tablet 25 mg PO DAILY #30 TA BLETS 09/17/14 Unknown Rx amlodipine 10 mg tablet 10 mg PO QDAY 10/10/2412/10 History potassium chloride 20 mEq 20 meq PO BID 10/10/24 Unkno wn History tablet,extended release(part/cryst) pravastatin 40 mg tablet 40 mg PO QDAY 10/10/24 Unkno wn History tadalafil 20 mg tablet 20 mg PO PRN PRN sexual acti vity 10/10/24 Unknown History CPAP - Continuous Positive Airway 11/26/24 Unknown Hi story Pressure([facility] INFORMATIONAL USE ONLY) oxycodone 5 mg tablet 5 mg PO BID PRN pain 5 days #10 12/10/24 Unknown Rx tabs Allergy/AdvReac Type Severity Reaction Status Date / Time Food Allergies: Uncoded Allergy Swelling Verified 12/12/24 10:43 lisinopril Allergy Angioedema Verified 12/12/24 10:43 Penicillins Allergy Unknown Verified 12/12/24 10:43 Surgical History Hx of colonoscopy Hx of total knee replacement Hx of total knee replacement Hx of tonsillectomy Social History Smoking Status: Never smoker alcohol intake: never substance use type: does not use additional social history: pt denies aspirin and ibuprofen use pt denies vaping, denies edibles, denies marijuana, denies history of blood clots Review of Systems (Anesthesia) ROS Narrative System reviewed and no additional complaints, except as documented.
[2024-12-13] MEDS: Lactated Ringers 1,000 ML 15 ML IV (11:04)
[2024-12-13] MEDS: Epinephrine (1 mg/ml) 1 MG/ML VIAL (11:10)
--- NOTE | 2024-12-13 12:26 | PCM.HP.STD ---
HPI - General HPI Narrative AVELINA TREJO, is a 74 M who presents S/P ssc excision of the left scalp. Margins clear. Here for skin graft [facility] Medical History Squamous cell carcinoma of scalp Wears glasses Cancer Alcohol use Arthritis High cholesterol Non-smoker CPAP (continuous positive airway pressure) dependence History of echocardiogram History of stress test Hypertension Hx of sebaceous cyst Home Medications ?Medication ?Instructions ?Recorded ?Last Taken ?Type glucosamine 500 mg-chondroit 400 2 ea PO DAILY 09/15/14 Unknown History mg-vit C 2 mg-tomer 0.33 mg capsule (Cosamin DS (with manganese)) multivitamin with folic acid 400 1 tab PO DAILY 09/15/14 Unknown History mcg tablet (Thera) pyridoxine (vitamin B6) 50 mg 100 mg PO DAILY 09/15/14 Unknown History tablet terazosin 5 mg capsule 10 mg PO DINNER 09/15/14 Unknown History epinephrine 0.3 mg/0.3 mL 0.3 mg (0.3 mL) IM UD #1 syringe 09/17/14 Unknown Rx injection, auto-injector hydrochlorothiazide 25 mg tablet 25 mg PO DAILY #30 TABLETS 09/17/14 Unknown Rx amlodipine 10 mg tablet 10 mg PO QDAY 10/10/24 12/13/24 09:00 History potassium chloride 20 mEq 20 meq PO BID 10/10/24 Unknown History tablet,extended release(part/cryst) pravastatin 40 mg tablet 40 mg PO QDAY 10/10/24 Unknown History tadalafil 20 mg tablet 20 mg PO PRN PRN sexual activity 10/10/24 Unknown History CPAP - Continuous Positive Airway 11/26/24 Unknown History Pressure([facility] INFORMATIONAL USE ONLY) oxycodone 5 mg tablet 5 mg PO BID PRN pain 5 days #10 12/10/24 Unknown Rx tabs Allergy/AdvReac Type Severity Reaction Status Date / Time Food Allergies: Uncoded Allergy Swelling Verified 12/13/24 10:49 lisinopril Allergy Angioedema Verified 12/13/24 10:49 Penicillins Allergy Unknown Verified 12/13/24 10:49 Surgical History Hx of colonoscopy Hx of total knee replacement Hx of total knee replacement Hx of tonsillectomy Social History Smoking Status: Never smoker alcohol intake: never substance use type: does not use additional social history: pt denies aspirin and ibuprofen use pt denies vaping, denies edibles, denies marijuana, denies history of blood clots Vital Signs Vital Signs Vital Signs: 12/13/24 10:51 12/13/24 10:51 Temperature 98.9 F Temperature Source Temporal Pulse Rate 84 Respiratory Rate 16 Respiratory Pattern Normal Blood Pressure 148/68 H Blood Pressure Mean 94 Blood Pressure Source Monitor Blood Pressure Position Semi-Fowlers Blood Pressure Location Right Arm Pulse Ox 98 Oxygen Delivery Method Room Air Weight Weight: 218 lb 4.122 oz Body Mass Index (BMI) 28.0 Physical Exam Narrative Bolster in place on head. No bleeding. Assessment & Plan Assessment/Plan (1) Neoplasm of uncertain behavior of skin: PLAN: SSC Clear margins Here for STSG I marked left thigh and patient in agreement. I talked to the patient extensively about the risks of surgery, including bleeding, skin graft failure, contour irregularities on scalp, infection, damage to surrounding structures, poor scaring, surgical site dehiscence and wound formation, need for wound care, need for repeat operations, failure to obtain the desired result, DVT/PE, and the risks of anesthesia including , including stroke (from low blood pressure/ischemia or clot). The benefits and alternatives of this surgery were also discussed. All of their questions were answered, and they agreed to proceed with surgery.
[2024-12-13] MEDS: Lactated Ringers 1,000 ML 1000 ML IV (12:31)
[2024-12-13] MEDS: Lidocaine 1% (5 ml sdv) 5 ML Vial IV (12:35)
[2024-12-13] MEDS: Lidocaine 1% /Epi 1:100 (20ml) 20 ML Vial (13:00)
[2024-12-13] MEDS: Bupiv/Epi 0.25% 30 ML Vial (13:00)
[2024-12-13] MEDS: Mineral Oil, Light Sterile 10 ML Vial MC (13:00)
--- NOTE | 2024-12-13 13:29 | PCM.POST.ANE ---
Anesthesia: Postop Eval I Current Vital Signs Temperature: 97.6 F Pulse Rate: 96 Blood Pressure: 133/56 Respiratory Rate: 20 Pulse Ox: 98 Oxygen Delivery Method: Room Air Assessment Airway patent: Yes Spontaneous unlabored respirations: Yes Mental status: Awake and Calm nausea: No Vomiting: No Anesthesia Complication: No Fluid Hydration Crystalloid volume administer (ml): 800 Total IV fluid infused: 800 Progress Note Anesthesia document: Postop Eval 1 completed: Yes
--- NOTE | 2024-12-13 13:50 | POSTOPAN2_ITS ---
Anesthesia Postop Eval I Sum Postop Eval Completion status Anesthesia document: Postop Eval 1 completed: Yes Anesthesia Postop Eval I Summary Anesthesia Postop Eval I Summary: Anesthesia Postop Eval I: Assessment Summary Airway patent Yes 12/13/24 13:29 RESEARCH NURSE [email or web address] Spontaneous unlabored Yes 12/13/24 13:29 RESEARCH NURSE [email or web address] respirations Mental status Awake,Calm 12/13/24 13:29 RESEARCH NURSE [email or web address] nausea No 12/13/24 13:29 RESEARCH NURSE [email or web address] Vomiting No 12/13/24 13:29 RESEARCH NURSE [email or web address] Anesthesia Postop Eval I: Fluid Summary Crystalloid volume administer 800 12/13/24 13:29 RESEARCH NURSE [email or web address] (ml) Colloids volume administered ( ml) Blood Product volume administered (ml) Total IV fluid infused 800 12/13/24 13:29 RESEARCH NURSE [email or web address] Anesthesia Postop Eval I: Summary Notes Anesthesia Complication No 12/13/24 13:29 RESEARCH NURSE [email or web address] Anesthesia Complication Comment: Post-operative progress note Anesthesia: Postop Eval II Evaluation Mental status: Awake Pain Level: 0 nausea: No Vomiting: No
--- NOTE | 2024-12-13 13:50 | PCM.POSTANE2 ---
Anesthesia Postop Eval I Sum Postop Eval Completion status Anesthesia document: Postop Eval 1 completed: Yes Anesthesia Postop Eval I Summary Anesthesia Postop Eval I Summary: Anesthesia Postop Eval I: Assessment Summary Airway patent Yes 12/13/24 13:29 [email or web address] Spontaneous unlabored Yes 12/13/24 13:29 [email or web address] [email or web address] respirations Mental status Awake,Calm 12/13/24 13:29 [email or web address] nausea No 12/13/24 13:29 [email or web address] [email or web address] Vomiting No 12/13/24 13:29 [email or web address] Anesthesia Postop Eval I: Fluid Summary Crystalloid volume administer 800 12/13/24 13:29 [email or web address] (ml) Colloids volume administered ( ml) Blood Product volume administered (ml) Total IV fluid infused 800 12/13/24 13:29 [email or web address] Anesthesia Postop Eval I: Summary Notes Anesthesia Complication No 12/13/24 13:29 [email or web address] Anesthesia Complication Comment: Post-operative progress note Anesthesia: Postop Eval II Evaluation Mental status: Awake Pain Level: 0 nausea: No Vomiting: No
--- NOTE | 2024-12-13 16:27 | OP.PCM_ITS ---
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: No Type of Anesthesia: General/Supplemental (30 cc of 50-50 mixture of 1% lidocaine and Quarter percent Marcaine with 1-200,000 epinephrine to the scalp and the thigh) RN Documented Start/Stop Times: Operation Date: 12/13/24 12:00 Case Time Into Pre-Op 12/13/24 10:34 Anesthesia Start 12/13/24 12:31 Into Room 12/13/24 12:31 Procedure Start 12/13/24 12:58 Procedure End 12/13/24 13:19 Anesthesia End 12/13/24 13:21 Out of Room 12/13/24 13:21 Into Recovery 12/13/24 13:25 Into Phase II Recovery 12/13/24 13:48 Out of Recovery 12/13/24 13:48 Out of Phase II 12/13/24 14:23 Procedure Start Time: 12:58 Procedure Stop Time: 13:21 Select all DRAINS/GRAFTS/IMPLANTS that apply: None Estimated Blood Loss: 5 cc Specimen collected: No Description of surgery: Indications: Beny Casper is a delightful 74-year-old male whom I removed a moderately differentiated squamous cell carcinoma from the left scalp earlier this week. The margins came back negative. He currently has cadaver allograft over the wound bed (exposed periosteum) with a bolster. I discussed the risks, benefits, and alternatives to the skin graft procedure and he agreed to proceed. Procedure details: Patient was correctly notified in preoperative holding and marked. He was taken back to the operating room he was administered sedation and local anesthesia as noted above. A proper timeout was performed. The bolster and the cadaver allograft were removed from the wound bed. The patient was prepped and draped in sterile fashion. The wound bed was irrigated with copious amounts of normal saline and Irrisept. Using a Camilla dermatome at 12/1000th inch, a 2.5 x 2.9 cm skin graft was harvested from the left thigh. It was meshed 1.5-1 and sutured into the wound bed on the scalp with Vicryl with a tie-over bolster of Xeroform and gauze. Hemostasis was obtained with epinephrine soaked Telfa and the donor site was dressed with Mepilex Ag, ABD, and Ioban. Patient tolerated the procedure well and was awakened and taken to the PACU in stable condition. Postoperative plan: Follow-up in 1 week for bolster and left thigh dressing removal. Surgical Findings: Healthy wound bed with healthy periosteum ready for wound grafting Complications Complications: No
== END 2024-12-13 14:24 | disposition home or self-care (01) ==
LOC: SDC 10:32 → AC 10:34
PROVIDERS: PCP Family Medicine Geriatric Medicine; Referring Provider Surgery Plastic and Reconstructive Surgery; Visit Provider Surgery Plastic and Reconstructive Surgery
PROC: (CPT 15100; principal; 2024-12-13 11:45)
DX: C44.42 Squamous cell carcinoma of skin of scalp and neck (principal); I10 Essential (primary) hypertension; E78.00 Pure hypercholesterolemia, unspecified; Z79.899 Other long term (current) drug therapy
CPT/HCPCS: 15100; 00300